=== PATIENT | female | born 1995 | race African-American/Black ===

== ENCOUNTER 2021-09-14 11:15 | Outpatient (RCR) | payer OTHER, SELFPAY ==
[2021-09-11 12:46] VITALS: BMI 45.7
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
--- NOTE | 2021-09-14 10:37 | PC.ADMIT ---
Admission note for 09/11/2021: Patient is 26 year old female, referred to PHP by [facility] were she was admitted in patient from 08/29/21 to 09/04/21 for severe depression, anxiety and SI. Dx: Bipolar, Depression and Anxiety. Patient has history of multiple in patient admissions. Patient reports symptoms have improved since discharge from [facility] howerever reports low energy, poor concentration and focus. She states she feels depression and anxiety creeping back All medications reconciled and medication teaching completed with patient who states good understanding. Patient seen by [facility] TA[facility]INGS [facility] today. Nursinf Admission completed via Telehealth. Patient in agreement with visit by Telehealth.
--- NOTE | 2021-09-15 15:14 | PC.NURSE ---
The client called out because she is not feeling well today
== END 2021-09-14 23:59 | disposition home or self-care (01) ==
LOC: HO.PHPA 11:15
PROVIDERS: Visit Provider Psychiatry & Neurology Psychiatry
DX: F31.4 Bipolar disorder, current episode depressed, severe, without psychotic features (principal); F41.1 Generalized anxiety disorder; F12.20 Cannabis dependence, uncomplicated; Z79.899 Other long term (current) drug therapy
CPT/HCPCS: 90791; 90853

== ENCOUNTER 2021-10-16 10:45 | Outpatient (RCR) | payer OTHER, SELFPAY ==
[2021-10-05 11:00] VITALS: BMI 48.2
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
[2021-10-05 14:37] LABS: Amphetamine Screen Urine Not Detected (Not Detect); Barbiturates, Urine Not Detected (Not Detect); Benzodiazepines Screen Urine Not Detected (Not Detect); Cannabinoid Screen Urine POSITIVE (Not Detect); Cocaine Screen Urine Not Detected (Not Detect); Fentanyl, urine Not Detected (Not Detect); Opiate Screen Urine Not Detected (Not Detect); Phencyclidine Screen Urine Not Detected (Not Detect)
--- NOTE | 2021-10-05 14:48 | PC.ADMIT ---
Patient is a 26 year old female who self referred to PHP d/t increased depression, and anxiety. Patient reports occasional SI however she stated, it is not as strong as it was before I went to the hospital . Denied plan or intent to kill or harm herself. Patient reports inpatient hospitalization in August at [facility] for about a week. Patient reports severe depression with SI and plan to cut her throat prior to hospitalization. Patient reports she found out her boyfriend of 4 years was cheating on her. Patient currently living with her now ex-boyfriend in separate rooms. They are civil towards each other. Patient reports financial issues which is stressful. Patient reports she was in Respite three times in March 2021. Patient also reports she has been smoking marijuana daily about 2 joints daily to manage her feelings. Stated she used to smoke 10 joints daily as she, had to be high all the time to manage her emotions. Patient wants to stop using and is aware that this is an issue for her. 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 Patient presented with depressed mood and anxious affect. She is calm and cooperative. Medications reconciled with patient and patient's pharmacy. Reports taking medications as prescribed. [ End ]
[2021-10-05 15:40] VITALS: BP 100/70; PULSE 80; TEMP 36.2
--- NOTE | 2021-10-06 15:55 | PC.NURSE ---
Met with p to review treatment plan, discuss schedule, and aftercare plans.
--- NOTE | 2021-10-08 15:02 | PC.NURSE ---
Case opened in treatment team.
== END 2021-10-16 23:59 | disposition home or self-care (01) ==
LOC: HO.PHPA 10:45
PROVIDERS: Nurse Practitioner Psychiatric/Mental Health; Visit Provider Psychiatry & Neurology Psychiatry
DX: F31.4 Bipolar disorder, current episode depressed, severe, without psychotic features (principal); F43.10 Post-traumatic stress disorder, unspecified; F41.1 Generalized anxiety disorder; F12.20 Cannabis dependence, uncomplicated
CPT/HCPCS: 80307; 90791; 90853

== ENCOUNTER 2022-01-03 13:17 | Emergency (ER) | payer MEDICAID, SELFPAY ==
--- NOTE | ~2022-01-03 | CT_ITS ---
EXAMINATION: CT HEAD WITHOUT CONTRAST CLINICAL INFORMATION: Syncope. Head trauma. COMPARISON: None TECHNIQUE: Contiguous axial imaging was performed from the skull base to vertex without intravenous administration of contrast. This CT examination was performed using dose optimization techniques as appropriate, variously including the following: *Automated exposure control *Adjustment of mA and/or kV according to patient size (this includes techniques or standardized protocols for targeted exams where dose is matched to indication/reason for exam; i.e. extremities or head) *Use of iterative reconstruction technique DLP: 896 mGy-cm FINDINGS: There is no evidence of acute intracranial hemorrhage, midline shift or mass effect. Abrams to white matter differentiation is well preserved. No evidence of abnormal extra-axial fluid collection. No evidence of acute territorial infarction. There is mild cerebral volume loss with proportionate prominence of the ventricles and cortical sulci; findings are atypical for patient's age. Recommend clinical correlation. No acute osseous abnormality. Calvarial soft tissues are unremarkable. The paranasal sinuses are well-aerated. Mastoid air cells and middle ear cavities are well-aerated. CT/CT head/brain wo IV con IMPRESSION: No acute intracranial abnormality. Mild cerebral volume loss which is atypical for patient's age. Recommend clinical correlation.
[2022-01-03 13:21] VITALS: BP 116/68; PULSE 90; O2SAT 98
[2022-01-03 13:22] VITALS: BP 137/73; PULSE 82; RESP 18; TEMP 36.6; O2SAT 100; BMI 47.5
--- NOTE | 2022-01-03 13:52 | ECG_ITS ---
Test Reason : SYNCOPE Blood Pressure : / mmHG Vent. Rate : 070 BPM Atrial Rate : 070 BPM P-R Int : 146 ms QRS Dur : 096 ms QT Int : 398 ms P-R-T Axes : 025 031 020 degrees QTc Int : 429 ms Normal sinus rhythm with sinus arrhythmia Early repolarization Normal ECG No previous ECGs available Referred By: Tiesha Raines Electronically Signed By:BRODY KIM MD
--- NOTE | 2022-01-03 13:53 | ED.SYNCOPE ---
HPI - Syncope General Chief Complaint: Syncope Stated Complaint: SYNCOPE, +HEAD STRIKE Time Seen by Provider: 01/03/22 13:26 Source: patient and EMS Mode of arrival: EMS Limitations: no limitations History of Present Illness HPI narrative: This is a 26-year-old female with history of anxiety, depression, PTSD, bipolar disorder, migraines who presents with syncopal episode. Per patient yesterday she felt lightheaded, had some nausea and vomiting. Generally fell on while yesterday. 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 Next thing she knew she woke up on the ground. Patient did have some nausea and vomiting after. She denies any incontinence. Patient reports similar episode 1 month ago requiring hospital visit and evaluation. Patient reports she has had syncopal episodes when she has migraines but feels this is different. She denies any chance of . Patient has an IUD. She denies any abdominal pain, diarrhea, neck pain or neck stiffness, chest pain, vision changes. Related Data Home Medications Medication Instructions Recorded Confirmed albuterol sulfate 90 mcg/actuation 2 inh inhalation Q4H PRN Shortness 09/11/21 10/05/21 aerosol inhaler Of Breath amlodipine 10 mg tablet 1 tab PO DAILY 09/11/21 10/05/21 buspirone 10 mg tablet 10 mg PO BID 09/11/21 10/05/21 clonazepam 1 mg tablet 1 tab PO TID PRN anxiety attack 09/11/21 10/05/21 hydroxyzine HCl 25 mg tablet 25 mg PO TID PRN Anxiety 09/11/21 10/05/21 lisinopril 20 mg tablet 40 tab PO DAILY 09/11/21 10/05/21 meclizine 12.5 mg tablet 1 tab PO TID PRN Headache 09/11/21 10/05/21 oxcarbazepine 600 mg tablet 1,200 mg PO BID 09/11/21 10/05/21 (Trileptal) risperidone 0.5 mg tablet 0.5 mg PO BID 09/11/21 10/05/21 Allergies Allergy/AdvReac Type Severity Reaction Status Date / Time acetaminophen [From Percocet] Allergy Itching Verified 09/11/21 12:29 almond Allergy Hives Verified 10/05/21 10:50 ondansetron [From Zofran] Allergy Itching Verified 09/11/21 12:29 oxycodone [From Percocet] Allergy Itching Verified 09/11/21 12:29 sertraline [From Zoloft] Allergy Involuntary Verified 09/11/21 12:31 Spasms hazelnut AdvReac Unknown Verified 10/05/21 10:51 Review of Systems Review of Systems: Yes all other systems are reviewed and are negative Constitutional: Constitutional: Reports no additional constitutional complaints, Denies body ache(s), Denies chills, Denies fever(s), Reports headache(s) and Denies weakness Eyes: Eyes: Reports no additional eye complaints and Denies change in vision ENT: Reports system reviewed and no additional complaints, except as documented, Reports dizziness, Reports headache(s), Denies nasal congestion, Denies nasal discharge and Denies neck pain Cardiovascular: Cardiovascular: Reports no additional cardiovascular complaints, Denies chest pain, Reports syncope, Denies leg edema and Denies dyspnea Respiratory: Respiratory: Reports no additional respiratory complaints, Denies cough and Denies dyspnea Gastrointestinal: Gastrointestinal: Reports no additional gastrointestinal complaints, Denies abdominal pain, Denies diarrhea, Reports nausea and Reports vomiting Genitourinary: Genitourinary: Reports no additional female genitourinary complaints and Denies urinary incontinence Musculoskeletal: Musculoskeletal: Reports no additional musculoskeletal complaints, Denies back pain, Denies arthralgias, Denies joint swelling, Denies neck pain, Denies numbness and Denies tingling Integumentary/Breasts: Skin/Breast: Reports system reviewed and no additional complaints, except as docu and Denies rash Neurologic: Reports system reviewed and no additional complaints, except as documented, Denies Abnormal speech present, Reports dizziness, Reports syncope, Reports headache(s), Denies numbness, Denies tingling and Denies weakness [facility] Past Medical History Attestation statement: The following information was validated with the patient. Source: old records reviewed and nursing notes reviewed Medical History Asthma Eczema Elevated prolactin level Hypertension IUD (intrauterine device) in place Migraine Sleep apnea Surgical History History of cholecystectomy Social History Social History Household Members: Friend(s) Patient Tobacco Use Status: Never used Tobacco Smoked in Last 30 Days: No Use of substances other than those prescribed or required for medical reasons: Yes Substance Use Type: Marijuana Advance Directives: No Advance Directives Information Provided: No Physical Exam Vital Signs: Vital Signs: Last Vital Signs Temp 98.1 F 01/03/22 16:33 Pulse 85 01/03/22 16:33 Resp 18 01/03/22 14:32 BP 118/67 01/03/22 16:33 Pulse Ox 100 01/03/22 16:33 O2 Del Method 01/03/22 16:33 BMI result Body Mass Index 47.5 Const: General: cooperative, healthy appearing, comfortable and no acute distress Orientation/consciousness: patient oriented x3 Limitations: no limitations HEENT: Head: Yes normal to inspection Ears: hearing grossly normal bilaterally General nose exam: Normal external nose present Face and sinus: Yes normal facial exam Mouth: Normal oral and palatal mucosa present Throat: Yes posterior oropharynx normal Eyes: General: appearance normal, both eyes and all related structures Pupils: Equal, round and reactive pupils present Neck: Neck: Yes normal visual inspection Chest: Chest palpation & inspection: normal inspection of the chest Resp: Effort & Inspection: normal respiratory effort Auscultation: clear to auscultation bilaterally Cardio: Rate: regular rate Rhythm: regular rhythm Peripheral pulses: Peripheral pulses 2+ throughout GI: Inspection: Yes normal to inspection Palpation (GI): Soft to palpation and nontender Auscultation: normal bowel sounds Back/Spine/Pelvis: Thoracic/Lumbar Spine: thoracic and lumbar spine normal to inspection Skin: General skin exam: no rashes or lesions noted Neuro: General: patient oriented x3, moves all extremities, no focal motor deficits, normal sensation to monofilament and Unable to assess gait Cranial nerves: Yes CN's II-XII intact bilaterally, Yes Equal, round and reactive pupils present, Yes Bilaterally intact EOM present, Yes Nystagmus not present, Yes Normal facial strength present and Yes Midline tongue present Cognition (Neuro): normal cognition Speech: No Abnormal speech present Gait exam (Neuro): Unable to assess gait Motor exam (neuro): 5/5 motor strength present throughout Sensory Exam: Normal double simultaneous stimulation for sensation Coordination: [id number] test normal, [id number] test normal and tandem gait normal Extrem: General: Yes normal to inspection Course Course Course Narrative: Labs are unremarkable. Orthostatics negative (standing heart rate 83, blood pressure 131/75, sitting heart rate 71, blood pressure 131/72, supine heart rate 71, blood pressure 130/67) EKG shows no ischemic changes with negative troponin. UA negative for infection. Urine is negative. CT head shows no acute finding. Patient has had the several days of vomiting, malaise, headache as prodrome with now syncopal episode. ?mild dehydration from viral illness. Recommended increasing fluids at home. Changing positions slowly. Reviewed worrisome signs and symptoms of when to return to the emergency room. Comfortable discharge home. MDM - Syncope MDM Narrative Medical decision making narrative: 26-year-old female here with reports of syncopal episode with preceding symptoms of headache, feeling lightheaded with nausea and vomiting. On arrival patient alert oriented. Normal neuro exam. Vitals are stable. Will need labs, EKG, orthostatics, UA with and CT head Medical Records Attestation: I reviewed the patient's medical records. Lab Data Attestation: I reviewed the patient's lab results. Result diagrams: 01/03/22 14:27 01/03/22 14:27 Labs: Lab Results 01/03/22 01/03/22 01/03/22 Range/Units 14:25 14:26 14:26 WBC (4.8-10.8) X10*3/uL RBC (4.20-5.50) X10*6/uL Hgb (12.0-16.0) g/dl Hct (37.0-47.0) % MCV (80.0-98.0) fL MCH (27.0-33.0) pg MCHC (31.0-35.0) g/dl RDW (11.0-16.0) % Plt Count (160-400) X10*3/uL MPV (9.4-12.3) fL Immature Gran % (Auto) (0.0-0.4) % Neut % (Auto) (45-73) % Lymph % (Auto) (20-40) % Isabella % (Auto) (2-11) % Eos % (Auto) (0-4) % Baso % (Auto) (0-2) % Lymph # (Auto) (1.2-4.9) X10*3/uL Isabella # (Auto) (0.1-1.2) X10*3/uL Eos # (Auto) (0.0-0.4) X10*3/uL Baso # (Auto) (0.0-0.2) X10*3/uL Abs Immat Gran (auto) (0.00-0.03) X10*3/uL Absolute Neuts (auto) (2.0-8.3) x10*3/uL Absolute Nucleated RBC (0.0-0.012) X10*3/uL Nucleated RBC % (auto) (0.0-0.2) /100WBC Sodium (135-145) mmol/L Potassium (3.3-5.1) mmol/L Chloride (96-108) mmol/L Carbon Dioxide (22-29) mmol/L Anion Gap (12-20) BUN (9-16) mg/dL Creatinine (0.5-1.4) mg/dL Estim Creat Clear Calc Estimated GFR Random Glucose (60-115) mg/dL Lactic Acid 0.9 (0.5-2.0) mmol/L Calcium (8.4-10.2) mg/dL Total Bilirubin (0.0-1.0) mg/dL Direct Bilirubin (0.0-0.5) mg/dL AST (5-31) U/L ALT (0-31) U/L Alkaline Phosphatase (39-117) U/L Troponin I High Sens (<3.5-17.0) ng/L Total Protein (6.5-8.0) g/dL Albumin (3.5-5.0) g/dL Urine Color Yellow Urine Appearance Clear Urine pH 5.5 (5.0-9.0) Ur Specific Blaine 1.025 (1.005-1.025) Urine Protein Negative (Neg-Trace) mg/dL Urine Glucose (UA) Negative (Negative) mg/dL Urine Ketones Negative (Negative) mg/dL Urine Blood Negative (Negative) Urine Nitrite Negative (Negative) Ur Leukocyte Esterase Negative (Negative) Urine Test NEGATIVE (NEGATIVE) COVID-19 (GENI) (Negative) COVID-19 Clin Com 1101/03/22 01/03/22 Range/Units 14:27 14:27 14:27 WBC 9.9 (4.8-10.8) X10*3/uL RBC 4.99 (4.20-5.50) X10*6/uL Hgb 14.6 (12.0-16.0) g/dl Hct 41.7 (37.0-47.0) % MCV 83.6 (80.0-98.0) fL MCH 29.3 (27.0-33.0) pg MCHC 35.0 (31.0-35.0) g/dl RDW 12.0 (11.0-16.0) % Plt Count 379 (160-400) X10*3/uL MPV 9.2 L (9.4-12.3) fL Immature Gran % (Auto) 0.3 (0.0-0.4) % Neut % (Auto) 49.7 (45-73) % Lymph % (Auto) 43.6 H (20-40) % Isabella % (Auto) 4.0 (2-11) % Eos % (Auto) 1.8 (0-4) % Baso % (Auto) 0.6 (0-2) % Lymph # (Auto) 4.3 (1.2-4.9) X10*3/uL Isabella # (Auto) 0.4 (0.1-1.2) X10*3/uL Eos # (Auto) 0.2 (0.0-0.4) X10*3/uL Baso # (Auto) 0.1 (0.0-0.2) X10*3/uL Abs Immat Gran (auto) 0.03 (0.00-0.03) X10*3/uL Absolute Neuts (auto) 4.9 (2.0-8.3) x10*3/uL Absolute Nucleated RBC 0.000 (0.0-0.012) X10*3/uL Nucleated RBC % (auto) 0.0 (0.0-0.2) /100WBC Sodium 138 (135-145) mmol/L Potassium 4.1 (3.3-5.1) mmol/L Chloride 105 (96-108) mmol/L Carbon Dioxide 23 (22-29) mmol/L Anion Gap 14 (12-20) BUN 10 (9-16) mg/dL Creatinine 0.70 (0.5-1.4) mg/dL Estim Creat Clear Calc 147.1 Estimated GFR > 60 Random Glucose 87 (60-115) mg/dL Lactic Acid (0.5-2.0) mmol/L Calcium 9.5 (8.4-10.2) mg/dL Total Bilirubin 0.6 (0.0-1.0) mg/dL Direct Bilirubin 0.2 (0.0-0.5) mg/dL AST 24 (5-31) U/L ALT 34 H (0-31) U/L Alkaline Phosphatase 69 (39-117) U/L Troponin I High Sens < 3.5 (<3.5-17.0) ng/L Total Protein 7.3 (6.5-8.0) g/dL Albumin 4.5 (3.5-5.0) g/dL Urine Color Urine Appearance Urine pH (5.0-9.0) Ur Specific Blaine (1.005-1.025) Urine Protein (Neg-Trace) mg/dL Urine Glucose (UA) (Negative) mg/dL Urine Ketones (Negative) mg/dL Urine Blood (Negative) Urine Nitrite (Negative) Ur Leukocyte Esterase (Negative) Urine Test (NEGATIVE) COVID-19 (GENI) (Negative) COVID-19 Clin Com 01/03/22 Range/Units 14:27 WBC (4.8-10.8) X10*3/uL RBC (4.20-5.50) X10*6/uL Hgb (12.0-16.0) g/dl Hct (37.0-47.0) % MCV (80.0-98.0) fL MCH (27.0-33.0) pg MCHC (31.0-35.0) g/dl RDW (11.0-16.0) % Plt Count (160-400) X10*3/uL MPV (9.4-12.3) fL Immature Gran % (Auto) (0.0-0.4) % Neut % (Auto) (45-73) % Lymph % (Auto) (20-40) % Isabella % (Auto) (2-11) % Eos % (Auto) (0-4) % Baso % (Auto) (0-2) % Lymph # (Auto) (1.2-4.9) X10*3/uL Isabella # (Auto) (0.1-1.2) X10*3/uL Eos # (Auto) (0.0-0.4) X10*3/uL Baso # (Auto) (0.0-0.2) X10*3/uL Abs Immat Gran (auto) (0.00-0.03) X10*3/uL Absolute Neuts (auto) (2.0-8.3) x10*3/uL Absolute Nucleated RBC (0.0-0.012) X10*3/uL Nucleated RBC % (auto) (0.0-0.2) /100WBC Sodium (135-145) mmol/L Potassium (3.3-5.1) mmol/L Chloride (96-108) mmol/L Carbon Dioxide (22-29) mmol/L Anion Gap (12-20) BUN (9-16) mg/dL Creatinine (0.5-1.4) mg/dL Estim Creat Clear Calc Estimated GFR Random Glucose (60-115) mg/dL Lactic Acid (0.5-2.0) mmol/L Calcium (8.4-10.2) mg/dL Total Bilirubin (0.0-1.0) mg/dL Direct Bilirubin (0.0-0.5) mg/dL AST (5-31) U/L ALT (0-31) U/L Alkaline Phosphatase (39-117) U/L Troponin I High Sens (<3.5-17.0) ng/L Total Protein (6.5-8.0) g/dL Albumin (3.5-5.0) g/dL Urine Color Urine Appearance Urine pH (5.0-9.0) Ur Specific Blaine (1.005-1.025) Urine Protein (Neg-Trace) mg/dL Urine Glucose (UA) (Negative) mg/dL Urine Ketones (Negative) mg/dL Urine Blood (Negative) Urine Nitrite (Negative) Ur Leukocyte Esterase (Negative) Urine Test (NEGATIVE) COVID-19 (GENI) Negative (Negative) COVID-19 Clin Com See Note Imaging Data CT scan - head: Attestation: I personally reviewed and interpreted this imaging study as follows: Radiologist's impression: [id number] [place] [address] CT Scan Report Signed Patient: Ariane Mckinnon MR#: [id number] : 1995 Acct:[id number] Age/Sex: 26 / F ADM Date: 01/03/22 Loc: HO.ED Attending Dr: Ordering Physician: Tiesha Raines NP Date of Service: 01/03/22 Procedure(s): CT head/brain wo IV con Accession Number(s): [id number] cc: Tiesha Raines NP~ EXAMINATION: CT HEAD WITHOUT CONTRAST CLINICAL INFORMATION: Syncope. Head trauma.? COMPARISON: None TECHNIQUE: Contiguous axial imaging was performed from the skull base to vertex without intravenous administration of contrast. This CT examination was performed using dose optimization techniques as appropriate, variously including the following: *Automated exposure control *Adjustment of mA and/or kV according to patient size (this includes techniques or standardized protocols for targeted exams where dose is matched to indication/reason for exam; i.e. extremities or head) *Use of iterative reconstruction technique DLP: 896 mGy-cm FINDINGS: There is no evidence of acute intracranial hemorrhage, midline shift or mass effect. Abrams to white matter differentiation is well preserved. No evidence of abnormal extra-axial fluid collection. No evidence of acute territorial infarction. There is mild cerebral volume loss with proportionate prominence of the ventricles and cortical sulci; findings are atypical for patient's age. Recommend clinical correlation. No acute osseous abnormality. Calvarial soft tissues are unremarkable. The paranasal sinuses are well-aerated. Mastoid air cells and middle ear cavities are well-aerated. ? CT/CT head/brain wo IV con IMPRESSION: No acute intracranial abnormality. Mild cerebral volume loss which is atypical for patient's age. Recommend clinical correlation. ? ECG Data Attestation: I personally reviewed and interpreted this ECG as follows: ECG interpretation date: 01/03/22 ECG interpretation time: 13:57 Interpretation: Normal sinus rhythm was sinus rhythm with rate of 70, normal [place], normal QRS, normal QT Discharge Plan Discharge Clinical Impression: Syncope Patient Disposition: Home, Self-Care Instructions: Syncope (ED) Additional Instructions: Change positions slowly Increase fluids at home COVID test is negative Your CT scan of your brain shows mild volume loss. Follow-up with primary care doctor in regards to this Prescriptions: No Action albuterol sulfate 90 mcg/actuation HFA aerosol inhaler 2 inh inhalation Q4H PRN (Reason: Shortness Of Breath) amlodipine 10 mg tablet 1 tab PO DAILY buspirone [BuSpar] 10 mg Tablet 10 mg PO BID clonazepam 1 mg tablet 1 tab PO TID PRN (Reason: anxiety attack) Rx Instructions: Use sparingly. Last filled for 90 tabs on 07/03/21 hydroxyzine HCl 25 mg Tablet 25 mg PO TID PRN (Reason: Anxiety) Rx Instructions: Waiting for p/u since August 26, 2021 lisinopril 20 mg tablet 40 tab PO DAILY meclizine 12.5 mg tablet 1 tab PO TID PRN (Reason: Headache) Rx Instructions: Last filled 06/08/21 risperidone 0.5 mg Tablet 0.5 mg PO BID oxcarbazepine [Trileptal] 600 mg Tablet 1,200 mg PO BID Label Comments: Patient was taking 1 and 1/2 tabs BID. She reports she is now taking 2 tabs BID. Referrals: Kwame Savage PA [Primary Care Provider] - 1 week Stand Alone Forms: Work/School Release Interventions: ED Discharge Assessment Last Done: 01/03/22 16:44
[2022-01-03 14:13] VITALS: BP 130/67; BP 131/72; BP 131/75; PULSE 71; PULSE 83
[2022-01-03 14:32] VITALS: BP 125/60; PULSE 75; RESP 18; O2SAT 100
[2022-01-03 14:33] LABS: MANUAL DIFF FLAG NO
[2022-01-03 14:34] LABS: Basophils Absolute Auto 0.1 X10*3/uL (0.0-0.2); Basophils Percent Auto 0.6 % (0-2); Eosinophils Absolute Auto 0.2 X10*3/uL (0.0-0.4); Eosinophils Percent Auto 1.8 % (0-4); Hematocrit 41.7 % (37.0-47.0); Hemoglobin 14.6 g/dl (12.0-16.0); Imm Gran Abs Auto 0.03 X10*3/uL (0.00-0.03); Imm Gran Pct Auto 0.3 % (0.0-0.4); Lymphocytes Absolute Auto 4.3 X10*3/uL (1.2-4.9); Lymphocytes Percent Auto 43.6 % (20-40); Mean Corpuscular Hemoglobin 29.3 pg (27.0-33.0); Mean Corpuscular Volume 83.6 fL (80.0-98.0); Mean Platelet Volume 9.2 fL (9.4-12.3); Monocytes Absolute Auto 0.4 X10*3/uL (0.1-1.2); Neutrophils Absolute Auto 4.9 x10*3/uL (2.0-8.3); Neutrophils Percent Auto 49.7 % (45-73); Platelet Count 379 X10*3/uL (160-400); Red Blood Count 4.99 X10*6/uL (4.20-5.50); White Blood Count 9.9 X10*3/uL (4.8-10.8)
[2022-01-03 14:36] LABS: Appearance Urine Clear; Color Urine Yellow; Glucose Urine UA Negative (Negative); Leukocyte Esterase Urine Negative (Negative); Nitrite Urine Negative (Negative); PH 5.5 (5.0-9.0); Specific Gravity - Urine 1.025 (1.005-1.025); Urine Blood Negative (Negative); Urine Ketones Negative (Negative); Urine Protein Negative (Neg-Trace)
[2022-01-03 14:38] LABS: UPreg QC Valid YES; Urine Pregnancy NEGATIVE (NEGATIVE)
[2022-01-03 14:45] LABS: Lactic Acid 0.9 mmol/L (0.5-2.0)
[2022-01-03 14:46] LABS: COVID-19 Test Negative (Negative)
[2022-01-03 14:50] LABS: Alanine Aminotransferase 34 U/L (0-31); Albumin Level 4.5 g/dL (3.5-5.0); Alkaline Phosphatase 69 U/L (39-117); Anion Gap 14 (12-20); Aspartate Amino Transferase 24 U/L (5-31); Bilirubin Direct 0.2 mg/dL (0.0-0.5); Bilirubin Total 0.6 mg/dL (0.0-1.0); Blood Urea Nitrogen 10 mg/dL (9-16); Calcium 9.5 mg/dL (8.4-10.2); Carbon Dioxide 23 mmol/L (22-29); Chloride 105 mmol/L (96-108); Creatinine Clr Calc Pharmacy 147.1; Estimated Glomerular Filt Rate > 60; Glucose Random 87 mg/dL (60-115); Potassium 4.1 mmol/L (3.3-5.1); Sodium 138 mmol/L (135-145); Total Protein 7.3 g/dL (6.5-8.0)
[2022-01-03 14:55] LABS: Troponin-I High Sensitivity < 3.5 ng/L (<3.5-17.0)
[2022-01-03 16:33] VITALS: BP 118/67; PULSE 85; TEMP 36.7; O2SAT 100
== END 2022-01-03 16:46 | disposition home or self-care (01) ==
PROVIDERS: Nurse Practitioner Family; Emergency Provider Emergency Medicine Emergency Medical Services; PCP Physician Assistant Medical
DX: R55 Syncope and collapse (principal); F41.9 Anxiety disorder, unspecified; F43.0 Acute stress reaction; Z20.822 Contact with and (suspected) exposure to COVID-19; Z79.899 Other long term (current) drug therapy
CPT/HCPCS: 70450; 80048; 80076; 81003; 81025; 83605; 84484; 85025; 87635; 93005; 99285

== ENCOUNTER 2022-01-11 12:40 | Observation (INO) | payer OTHER, SELFPAY ==
--- NOTE | ~2022-01-11 | CT_ITS ---
EXAMINATION: CT HEAD WITHOUT CONTRAST CLINICAL INFORMATION: Syncope. COMPARISON: Head CT scan dated 01/03/2022. TECHNIQUE: Contiguous axial imaging was performed from the skull base to vertex without intravenous administration of contrast. Coronal and sagittal reformatted images were obtained. This CT examination was performed using dose optimization techniques as appropriate, variously including the following: *Automated exposure control *Adjustment of mA and/or kV according to patient size (this includes techniques or standardized protocols for targeted exams where dose is matched to indication/reason for exam; i.e. extremities or head) *Use of iterative reconstruction technique DLP: 859 mGy-cm FINDINGS: The cortical sulci are normal. The lateral ventricles are symmetrical. The third and fourth ventricles are in their normal midline position. The basilar and prepontine cisterns are unremarkable. There is no acute intra or extracerebral abnormality. There is no mass effect or midline shift. Sections through the bony calvarium are unremarkable. The paranasal sinuses are clear. Mild mid nasal septal deviation apex of the right with small apical spur. The bony orbits and orbital contents are unremarkable. CT/CT head/brain wo IV con IMPRESSION: No acute intracranial pathology.
--- NOTE | ~2022-01-11 | XR_ITS ---
EXAMINATION: XR CHEST CLINICAL INFORMATION: Syncope COMPARISON: None TECHNIQUE: Frontal view of the chest was obtained. FINDINGS: Lungs are slightly hypoinflated. No airspace consolidation. No pleural effusion or pneumothorax. Cardiomediastinal silhouette and pulmonary vascularity are within normal limits. No acute osseous injury. XR/XR chest 1V IMPRESSION: No acute pulmonary disease.
--- NOTE | 2022-01-11 13:51 | ED_ITS ---
HPI - Fall General Chief Complaint: Syncope <HEATHER Cardoza Last Filed: 01/11/22 14:00> Stated Complaint: fall 01/11/22, passed out, feeling tired <HEATHER Cardoza Last Filed: 01/11/22 14:00> Time Seen by Provider: 01/11/22 14:25 <HEATHER Cardoza Last Filed: 01/11/22 14:00> Source: patient <HEATHER Gunderson Last Filed: 01/11/22 17:13> Mode of arrival: ambulatory <HEATHER Gunderson Last Filed: 01/11/22 17:13> History of Present Illness HPI Narrative: 26-year-old female with a past medical history of asthma, HTN, migraines, sleep apnea, presenting to the ED complaining of syncopal episode morning with + head strike, roomate found on the floor denies witnessed seizure-like activity or incontinence. Patient admits to similar symptoms last week in which she was evaluated in our ED, patient also had witnessed syncopal episode while in triage today. Admits to family history of blood clots, denies personal history or prior coagulopathy workup parent admits to feeling lightheaded prior to syncope. Reports mild headache at present. Denies vision change/loss, CP/SOB, abdominal pain, nausea/vomiting, pedal edema calf pain. Denies taking anticoagulation <HEATHER Gunderson Last Filed: 01/11/22 17:13> MD complaint: fall <HEATHER Gunderson Last Filed: 01/11/22 17:13> Onset (ago): hour(s) <HEATHER Gunderson Last Filed: 01/11/22 17:13> Related Data Home Medications: Home Medications Medication Instructions Recorded Confirmed albuterol sulfate 90 mcg/actuation 2 inh inhalation Q4H PRN Shortness 09/11/21 10/05/21 aerosol inhaler Of Breath amlodipine 10 mg tablet 1 tab PO DAILY 09/11/21 10/05/21 buspirone 10 mg tablet 10 mg PO BID 09/11/21 10/05/21 clonazepam 1 mg tablet 1 tab PO TID PRN anxiety attack 09/11/21 10/05/21 hydroxyzine HCl 25 mg tablet 25 mg PO TID PRN Anxiety 09/11/21 10/05/21 lisinopril 20 mg tablet 40 tab PO DAILY 09/11/21 10/05/21 meclizine 12.5 mg tablet 1 tab PO TID PRN Headache 09/11/21 10/05/21 oxcarbazepine 600 mg tablet 1,200 mg PO BID 09/11/21 10/05/21 (Trileptal) risperidone 0.5 mg tablet 0.5 mg PO BID 09/11/21 10/05/21 <HEATHER Cardoza - Last Filed: 01/11/22 14:00> Allergies/Adverse Reactions: Allergies Allergy/AdvReac Type Severity Reaction Status Date / Time acetaminophen [From Percocet] Allergy Itching Verified 09/11/21 12:29 almond Allergy Hives Verified 10/05/21 10:50 ondansetron [From Zofran] Allergy Itching Verified 09/11/21 12:29 oxycodone [From Percocet] Allergy Itching Verified 09/11/21 12:29 sertraline [From Zoloft] Allergy Involuntary Verified 09/11/21 12:31 Spasms hazelnut AdvReac Unknown Verified 10/05/21 10:51 <HEATHER Cardoza Last Filed: 01/11/22 14:00> Review of Systems Review of Systems: Constitutional: No Fever, No Chills, No Fatigue, No Malaise ENT/Mouth: No Ear Pain, No Nasal Congestion, No Sinus Pain, No Hoarseness, No sore throat, No Rhinorrhea, No Swallowing Difficulty Eyes: No Eye Pain, No Swelling, No Redness, No Discharge, No Vision Changes Cardiovascular: No Chest Pain, No SOB, No Edema, No Palpitations Respiratory: No Cough, No Sputum, No Dyspnea Gastrointestinal: No Nausea, No Vomiting, No Diarrhea, No Constipation, No Abdominal pain Genitourinary: No irregular bleeding, No Dysuria, No Urinary Frequency, No Hematuria, No Urinary Incontinence/retention, No Flank Pain Musculoskeletal: No joint pain, No Myalgias, No Joint Swelling Skin: No Skin Lesions, No rash Neuro: No Weakness, No Numbness, No Paresthesias, + Loss of Consciousness, + lightheadedness, + Headache <HEATHER Gunderson - Last Filed: 01/11/22 17:13> Yes all other systems are reviewed and are negative <HEATHER Gunderson - Last Filed: 01/11/22 17:13> Constitutional: Constitutional: Reports as per HPI <HEATHER Gunderson - Last Filed: 01/11/22 17:13> Neurologic: Denies Abnormal speech present <HEATHER Gunderson - Last Filed: 01/11/22 17:13> [facility] Past Medical History Attestation statement: The following information was validated with the patient. <HEATHER Gunderson - Last Filed: 01/11/22 17:13> Medical History: Medical History Asthma Eczema Elevated prolactin level Hypertension IUD (intrauterine device) in place Migraine Sleep apnea <HEATHER Cardoza - Last Filed: 01/11/22 14:00> Surgical History: Surgical History History of cholecystectomy <HEATHER Cardoza - Last Filed: 01/11/22 14:00> Social History Social History: Social History Household Members: Friend(s) Patient Tobacco Use Status: Never used Tobacco Substance Use Type: Marijuana Advance Directives: No Advance Directives Information Provided: Yes <HEATHER Cardoza - Last Filed: 01/11/22 14:00> Physical Exam Vital Signs: Vital Signs: Last Vital Signs Temp 97 F 01/11/22 13:52 Pulse 76 01/11/22 13:52 Resp 18 01/11/22 13:52 BP 126/83 01/11/22 13:52 Pulse Ox 99 01/11/22 13:52 O2 Del Method 01/11/22 13:52 BMI result Body Mass Index 48.4 <HEATHER Cardoza - Last Filed: 01/11/22 14:00> Vital Signs: Last Vital Signs Temp 97 F 01/11/22 13:52 Pulse 76 01/11/22 13:52 Resp 18 01/11/22 13:52 BP 126/83 01/11/22 13:52 Pulse Ox 99 01/11/22 13:52 O2 Del Method 01/11/22 13:52 BMI result Body Mass Index 48.4 <HEATHER Gunderson - Last Filed: 01/11/22 17:13> Const: General: cooperative, healthy appearing, no acute distress, alert and awake <HEATHER Gunderson - Last Filed: 01/11/22 17:13> Orientation/consciousness: patient oriented x3 <HEATHER Gunderson - Last Filed: 01/11/22 17:13> Limitations: no limitations <HEATHER Gunderson - Last Filed: 01/11/22 17:13> HEENT: Head: Yes normal to inspection and Yes atraumatic <HEATHER Gunderson - Last Filed: 01/11/22 17:13> Ears: hearing grossly normal bilaterally <HEATHER Gunderson - Last Filed: 01/11/22 17:13> General nose exam: Normal external nose present <HEATHER Gunderson - Last Filed: 01/11/22 17:13> Face and sinus: Yes normal facial exam <HEATHER Gunderson - Last Filed: 01/11/22 17:13> Throat: Yes posterior oropharynx normal, Yes tonsils normal, Yes uvula midline and No peritonsillar mass <HEATHER Gunderson - Last Filed: 01/11/22 17:13> Eyes: General: appearance normal, both eyes and all related structures <HEATHER Gunderson - Last Filed: 01/11/22 17:13> Pupils: Equal, round and reactive pupils present <HEATHER Gunderson - Last Filed: 01/11/22 17:13> EOM: EOMs intact bilaterally <HEATHER Gunderson - Last Filed: 01/11/22 17:13> Neck: Neck: Yes normal visual inspection and Yes no meningeal signs <HEATHER Gunderson - Last Filed: 01/11/22 17:13> Resp: Effort & Inspection: normal respiratory effort and no respiratory distress <HEATHER Gunderson - Last Filed: 01/11/22 17:13> Auscultation: clear to auscultation bilaterally, no crackles, no rales, no rhonchi and no wheezes <Lois Pouliot, PA - Last Filed: 01/11/22 17:13> Cardio: Rate: regular rate <Lois Pouliot, PA - Last Filed: 01/11/22 17:13> Heart sounds: S1 normal heart sound present and S2 normal heart sound present <Lois Pouliot, PA - Last Filed: 01/11/22 17:13> GI: Inspection: Yes normal to inspection <Lois Pouliot, PA - Last Filed: 01/11/22 17:13> Palpation (GI): Soft to palpation, nontender, no guarding and not rigid <Lois Pouliot, PA - Last Filed: 01/11/22 17:13> : General: Yes no CVA tenderness <Lois Pouliot, PA - Last Filed: 01/11/22 17:13> Back/Spine/Pelvis: Back: no CVA tenderness <Lois Pouliot, PA - Last Filed: 01/11/22 17:13> Skin: Rashes: no rashes <Lois Pouliot, PA - Last Filed: 01/11/22 17:13> Wounds: no wounds <Lois Pouliot, PA - Last Filed: 01/11/22 17:13> Neuro: General: patient oriented x3, tone normal, moves all extremities, no meningeal signs, no focal motor deficits and CN's II-XI intact bilaterally <Lois Pouliot, PA - Last Filed: 01/11/22 17:13> Cranial nerves: Yes CN's II-XII intact bilaterally, Yes Equal, round and reactive pupils present and Yes Bilaterally intact EOM present <Lois Pouliot, PA - Last Filed: 01/11/22 17:13> Cognition (Neuro): normal cognition <Lois Pouliot, PA - Last Filed: 01/11/22 17:13> Speech: No Abnormal speech present <Lois Pouliot, PA - Last Filed: 01/11/22 17:13> Motor exam (neuro): 5/5 motor strength present throughout, Pronator motor function not present and no tremor noted <Lois Pouliot, PA - Last Filed: 01/11/22 17:13> Coordination: [id number] test normal <HEATHER Gunderson Last Filed: 01/11/22 17:13> Romberg Test: Negative <HEATHER Gunderson - Last Filed: 01/11/22 17:13> Extrem: General: Yes normal to inspection, Yes no pedal edema and Yes no calf tenderness <HEATHER Gunderson - Last Filed: 01/11/22 17:13> Course Course Course Narrative: -1529--no leukocytosis. H&H stable. Troponin negative > will obtain 3 hour repeat. Labs otherwise unremarkable. XR chest 1V IMPRESSION: No acute pulmonary disease. 1620--CT head/brain wo IV con IMPRESSION: No acute intracranial pathology. ? -1710--D-dimer negative. Tox screen positive for benzos and THC > plan to admit patient for further management <HEATHER Gunderson - Last Filed: 01/11/22 17:13> Reevaluation(s) Reevaluation #1: 26 year old female hx bipolar do, anxiety, leana, htn presents with CC I passed out , unwitnessed just prior to arrival. Thinks she hit her head on door, woke up to roommate waking her up on the floor. Reports headache. Denies preceding sx. No loss of bowel control, no tongue trauma. No seizure hx. Tells me this happened to her last week aswell. Denies drugs and alcohol. Denies chest pain, shortness of breath, vision changes, dizziness, nausea, vomiting. No thinners PE: benign GCS 15, NIHSS-0 Plan- labs, urine, ekg, chest xray, head CT <HEATHER Cardoza - Last Filed: 01/11/22 14:00> Time: 13:55 <HEATHER Cardoza - Last Filed: 01/11/22 14:00> Reevaluation #2: Patient sycnopized fell no head strike, helped up brought into the department. <HEATHER Cardoza Last Filed: 01/11/22 14:00> Time: 14:00 <HEATHER Cardoza Last Filed: 01/11/22 14:00> Medications Administered Discontinued Medications Generic Name Dose Route Start Last Admin Trade Name Freq PRN Reason Stop Dose Admin Sodium Chloride 1,000 mls @ 999 mls/hr 01/11/22 15:00 01/11/22 15:24 Ns IV 01/11/22 16:00 999 mls/hr .Q1H1M MIMA Administration <HEATHER Cardoza - Last Filed: 01/11/22 14:00> Medications Administered Discontinued Medications Generic Name Dose Route Start Last Admin Trade Name Freq PRN Reason Stop Dose Admin Sodium Chloride 1,000 mls @ 999 mls/hr 01/11/22 15:00 01/11/22 15:24 Ns IV 01/11/22 16:00 999 mls/hr .Q1H1M MIMA Administration <HEATHER Gunderson - Last Filed: 01/11/22 17:13> MDM - Fall MDM Narrative Medical decision making narrative: 26-year-old female with a past medical history of asthma, HTN, migraines, sleep apnea, presenting to the ED complaining of syncopal episode morning with + head strike, roomate found on the floor denies witnessed seizure-like activity or incontinence. On exam vital signs stable, NAD, nontoxic appearing, no evidence of trauma, no midline spinous tenderness or focal neuro deficits. Concern for vasovagal syncope vs PE vs ICH. Rule out metabolic abnormalities. Lower suspicion for infectious etiology Plan: EKG, labs, UA, CXR, head CT, orthostatics, anticipated admission <HEATHER Gunderson - Last Filed: 01/11/22 17:13> Differential Diagnosis Differential diagnosis: Likely syncope and concussion with loss of consciousness <HEATHER Gunderson - Last Filed: 01/11/22 17:13> Medical Records Attestation: I reviewed the patient's medical records. <HEATHER Gunderson - Last Filed: 01/11/22 17:13> Lab Data Attestation: I reviewed the patient's lab results. <HEATHER Gunderson - Last Filed: 01/11/22 17:13> Result diagrams: : 01/11/22 14:23 01/11/22 14:23 <HEATHER Cardoza - Last Filed: 01/11/22 14:00> Labs: Lab Results 01/11/22 01/11/22 01/11/22 Range/Units 14:12 14:23 14:23 WBC 10.7 (4.8-10.8) X10*3/uL RBC 4.95 (4.20-5.50) X10*6/uL Hgb 14.3 (12.0-16.0) g/dl Hct 40.8 (37.0-47.0) % MCV 82.4 (80.0-98.0) fL MCH 28.9 (27.0-33.0) pg MCHC 35.0 (31.0-35.0) g/dl RDW 12.1 (11.0-16.0) % Plt Count 379 (160-400) X10*3/uL MPV 9.4 (9.4-12.3) fL Immature Gran % (Auto) 0.2 (0.0-0.4) % Neut % (Auto) 55.0 (45-73) % Lymph % (Auto) 37.3 (20-40) % [place] % (Auto) 5.8 (2-11) % Eos % (Auto) 1.0 (0-4) % Baso % (Auto) 0.7 (0-2) % Lymph # (Auto) 4.0 (1.2-4.9) X10*3/uL [place] # (Auto) 0.6 (0.1-1.2) X10*3/uL Eos # (Auto) 0.1 (0.0-0.4) X10*3/uL Baso # (Auto) 0.1 (0.0-0.2) X10*3/uL Abs Immat Gran (auto) 0.02 (0.00-0.03) X10*3/uL Absolute Neuts (auto) 5.9 (2.0-8.3) x10*3/uL Absolute Nucleated RBC 0.000 (0.0-0.012) X10*3/uL Nucleated RBC % (auto) 0.0 (0.0-0.2) /100WBC PT (10.0-13.1) SEC INR (0.9-1.1) D-Dimer High Sensitivty NG/ML Sodium 138 (135-145) mmol/L Potassium 4.0 (3.3-5.1) mmol/L Chloride 103 (96-108) mmol/L Carbon Dioxide 25 (22-29) mmol/L Anion Gap 14 (12-20) BUN 9 (9-16) mg/dL Creatinine 0.70 (0.5-1.4) mg/dL Estim Creat Clear Calc 148.8 Estimated GFR > 60 POC Glucose 81 (60-115) mg/dL Random Glucose 87 (60-115) mg/dL Calcium 9.9 (8.4-10.2) mg/dL Magnesium 2.1 (1.6-2.6) mg/dL Total Bilirubin 1.1 H (0.0-1.0) mg/dL AST 24 (5-31) U/L ALT 31 (0-31) U/L Alkaline Phosphatase 69 (39-117) U/L Troponin I High Sens (<3.5-17.0) ng/L Total Protein 7.1 (6.5-8.0) g/dL Albumin 4.5 (3.5-5.0) g/dL Beta HCG, Quant < 2 mIU/mL Urine Color Urine Appearance Urine pH (5.0-9.0) Ur Specific [place] (1.005-1.025) Urine Protein (Neg-Trace) mg/dL Urine Glucose (UA) (Negative) mg/dL Urine Ketones (Negative) mg/dL Urine Blood (Negative) Urine Nitrite (Negative) Ur Leukocyte Esterase (Negative) Urine RBC (0-2) /HPF Urine WBC (0-5) /HPF Ur Squamous Epith Cells (0-2) /HPF Urine Bacteria (None Seen) Hyaline Casts (0-2) /LPF Urine Opiates Screen (Not Detect) Urine Fentanyl Screen (Not Detect) Ur Barbiturates Screen (Not Detect) Ur Phencyclidine Scrn (Not Detect) Ur Amphetamines Screen (Not Detect) U Benzodiazepines Scrn (Not Detect) Urine Cocaine Screen (Not Detect) U Marijuana (THC) Screen (Not Detect) Influenza Type A (PCR) (Negative) Influenza Type B (PCR) (Negative) RSV RNA Qual (PCR) (Negative) SARS-CoV-2 RNA (RT-PCR) (Negative) 01/11/22 01/11/22 01/11/22 Range/Units 14:23 15:36 16:24 WBC (4.8-10.8) X10*3/uL RBC (4.20-5.50) X10*6/uL Hgb (12.0-16.0) g/dl Hct (37.0-47.0) % MCV (80.0-98.0) fL MCH (27.0-33.0) pg MCHC (31.0-35.0) g/dl RDW (11.0-16.0) % Plt Count (160-400) X10*3/uL MPV (9.4-12.3) fL Immature Gran % (Auto) (0.0-0.4) % Neut % (Auto) (45-73) % Lymph % (Auto) (20-40) % [place] % (Auto) (2-11) % Eos % (Auto) (0-4) % Baso % (Auto) (0-2) % Lymph # (Auto) (1.2-4.9) X10*3/uL [place] # (Auto) (0.1-1.2) X10*3/uL Eos # (Auto) (0.0-0.4) X10*3/uL Baso # (Auto) (0.0-0.2) X10*3/uL Abs Immat Gran (auto) (0.00-0.03) X10*3/uL Absolute Neuts (auto) (2.0-8.3) x10*3/uL Absolute Nucleated RBC (0.0-0.012) X10*3/uL Nucleated RBC % (auto) (0.0-0.2) /100WBC PT 13.0 (10.0-13.1) SEC INR 1.1 (0.9-1.1) D-Dimer High Sensitivty < 150 NG/ML Sodium (135-145) mmol/L Potassium (3.3-5.1) mmol/L Chloride (96-108) mmol/L Carbon Dioxide (22-29) mmol/L Anion Gap (12-20) BUN (9-16) mg/dL Creatinine (0.5-1.4) mg/dL Estim Creat Clear Calc Estimated GFR POC Glucose (60-115) mg/dL Random Glucose (60-115) mg/dL Calcium (8.4-10.2) mg/dL Magnesium (1.6-2.6) mg/dL Total Bilirubin (0.0-1.0) mg/dL AST (5-31) U/L ALT (0-31) U/L Alkaline Phosphatase (39-117) U/L Troponin I High Sens < 3.5 (<3.5-17.0) ng/L Total Protein (6.5-8.0) g/dL Albumin (3.5-5.0) g/dL Beta HCG, Quant mIU/mL Urine Color Urine Appearance Urine pH (5.0-9.0) Ur Specific [place] (1.005-1.025) Urine Protein (Neg-Trace) mg/dL Urine Glucose (UA) (Negative) mg/dL Urine Ketones (Negative) mg/dL Urine Blood (Negative) Urine Nitrite (Negative) Ur Leukocyte Esterase (Negative) Urine RBC (0-2) /HPF Urine WBC (0-5) /HPF Ur Squamous Epith Cells (0-2) /HPF Urine Bacteria (None Seen) Hyaline Casts (0-2) /LPF Urine Opiates Screen (Not Detect) Urine Fentanyl Screen (Not Detect) Ur Barbiturates Screen (Not Detect) Ur Phencyclidine Scrn (Not Detect) Ur Amphetamines Screen (Not Detect) U Benzodiazepines Scrn (Not Detect) Urine Cocaine Screen (Not Detect) U Marijuana (THC) Screen (Not Detect) Influenza Type A (PCR) NEGATIVE (Negative) Influenza Type B (PCR) NEGATIVE (Negative) RSV RNA Qual (PCR) NEGATIVE (Negative) SARS-CoV-2 RNA (RT-PCR) NEGATIVE (Negative) 01/11/22 01/11/22 Range/Units 16:24 16:25 WBC (4.8-10.8) X10*3/uL RBC (4.20-5.50) X10*6/uL Hgb (12.0-16.0) g/dl Hct (37.0-47.0) % MCV (80.0-98.0) fL MCH (27.0-33.0) pg MCHC (31.0-35.0) g/dl RDW (11.0-16.0) % Plt Count (160-400) X10*3/uL MPV (9.4-12.3) fL Immature Gran % (Auto) (0.0-0.4) % Neut % (Auto) (45-73) % Lymph % (Auto) (20-40) % [place] % (Auto) (2-11) % Eos % (Auto) (0-4) % Baso % (Auto) (0-2) % Lymph # (Auto) (1.2-4.9) X10*3/uL [place] # (Auto) (0.1-1.2) X10*3/uL Eos # (Auto) (0.0-0.4) X10*3/uL Baso # (Auto) (0.0-0.2) X10*3/uL Abs Immat Gran (auto) (0.00-0.03) X10*3/uL Absolute Neuts (auto) (2.0-8.3) x10*3/uL Absolute Nucleated RBC (0.0-0.012) X10*3/uL Nucleated RBC % (auto) (0.0-0.2) /100WBC PT (10.0-13.1) SEC INR (0.9-1.1) D-Dimer High Sensitivty NG/ML Sodium (135-145) mmol/L Potassium (3.3-5.1) mmol/L Chloride (96-108) mmol/L Carbon Dioxide (22-29) mmol/L Anion Gap (12-20) BUN (9-16) mg/dL Creatinine (0.5-1.4) mg/dL Estim Creat Clear Calc Estimated GFR POC Glucose (60-115) mg/dL Random Glucose (60-115) mg/dL Calcium (8.4-10.2) mg/dL Magnesium (1.6-2.6) mg/dL Total Bilirubin (0.0-1.0) mg/dL AST (5-31) U/L ALT (0-31) U/L Alkaline Phosphatase (39-117) U/L Troponin I High Sens (<3.5-17.0) ng/L Total Protein (6.5-8.0) g/dL Albumin (3.5-5.0) g/dL Beta HCG, Quant mIU/mL Urine Color Dark Yellow Urine Appearance Clear Urine pH 5.5 (5.0-9.0) Ur Specific [place] 1.020 (1.005-1.025) Urine Protein Negative (Neg-Trace) mg/dL Urine Glucose (UA) Negative (Negative) mg/dL Urine Ketones Negative (Negative) mg/dL Urine Blood Negative (Negative) Urine Nitrite Negative (Negative) Ur Leukocyte Esterase Trace H (Negative) Urine RBC 0-2 (0-2) /HPF Urine WBC 0-5 (0-5) /HPF Ur Squamous Epith Cells 6-10 (0-2) /HPF Urine Bacteria Trace (None Seen) Hyaline Casts 0-2 (0-2) /LPF Urine Opiates Screen Not Detected (Not Detect) Urine Fentanyl Screen Not Detected (Not Detect) Ur Barbiturates Screen Not Detected (Not Detect) Ur Phencyclidine Scrn Not Detected (Not Detect) Ur Amphetamines Screen Not Detected (Not Detect) U Benzodiazepines Scrn POSITIVE H (Not Detect) Urine Cocaine Screen Not Detected (Not Detect) U Marijuana (THC) Screen POSITIVE H (Not Detect) Influenza Type A (PCR) (Negative) Influenza Type B (PCR) (Negative) RSV RNA Qual (PCR) (Negative) SARS-CoV-2 RNA (RT-PCR) (Negative) <HEATHER Cardoza - Last Filed: 01/11/22 14:00> Lab Results 01/11/22 01/11/22 01/11/22 Range/Units 14:12 14:23 14:23 WBC 10.7 (4.8-10.8) X10*3/uL RBC 4.95 (4.20-5.50) X10*6/uL Hgb 14.3 (12.0-16.0) g/dl Hct 40.8 (37.0-47.0) % MCV 82.4 (80.0-98.0) fL MCH 28.9 (27.0-33.0) pg MCHC 35.0 (31.0-35.0) g/dl RDW 12.1 (11.0-16.0) % Plt Count 379 (160-400) X10*3/uL MPV 9.4 (9.4-12.3) fL Immature Gran % (Auto) 0.2 (0.0-0.4) % Neut % (Auto) 55.0 (45-73) % Lymph % (Auto) 37.3 (20-40) % [place] % (Auto) 5.8 (2-11) % Eos % (Auto) 1.0 (0-4) % Baso % (Auto) 0.7 (0-2) % Lymph # (Auto) 4.0 (1.2-4.9) X10*3/uL [place] # (Auto) 0.6 (0.1-1.2) X10*3/uL Eos # (Auto) 0.1 (0.0-0.4) X10*3/uL Baso # (Auto) 0.1 (0.0-0.2) X10*3/uL Abs Immat Gran (auto) 0.02 (0.00-0.03) X10*3/uL Absolute Neuts (auto) 5.9 (2.0-8.3) x10*3/uL Absolute Nucleated RBC 0.000 (0.0-0.012) X10*3/uL Nucleated RBC % (auto) 0.0 (0.0-0.2) /100WBC PT (10.0-13.1) SEC INR (0.9-1.1) D-Dimer High Sensitivty NG/ML Sodium 138 (135-145) mmol/L Potassium 4.0 (3.3-5.1) mmol/L Chloride 103 (96-108) mmol/L Carbon Dioxide 25 (22-29) mmol/L Anion Gap 14 (12-20) BUN 9 (9-16) mg/dL Creatinine 0.70 (0.5-1.4) mg/dL Estim Creat Clear Calc 148.8 Estimated GFR > 60 POC Glucose 81 (60-115) mg/dL Random Glucose 87 (60-115) mg/dL Calcium 9.9 (8.4-10.2) mg/dL Magnesium 2.1 (1.6-2.6) mg/dL Total Bilirubin 1.1 H (0.0-1.0) mg/dL AST 24 (5-31) U/L ALT 31 (0-31) U/L Alkaline Phosphatase 69 (39-117) U/L Troponin I High Sens (<3.5-17.0) ng/L Total Protein 7.1 (6.5-8.0) g/dL Albumin 4.5 (3.5-5.0) g/dL Beta HCG, Quant < 2 mIU/mL Urine Color Urine Appearance Urine pH (5.0-9.0) Ur Specific [place] (1.005-1.025) Urine Protein (Neg-Trace) mg/dL Urine Glucose (UA) (Negative) mg/dL Urine Ketones (Negative) mg/dL Urine Blood (Negative) Urine Nitrite (Negative) Ur Leukocyte Esterase (Negative) Urine RBC (0-2) /HPF Urine WBC (0-5) /HPF Ur Squamous Epith Cells (0-2) /HPF Urine Bacteria (None Seen) Hyaline Casts (0-2) /LPF Urine Opiates Screen (Not Detect) Urine Fentanyl Screen (Not Detect) Ur Barbiturates Screen (Not Detect) Ur Phencyclidine Scrn (Not Detect) Ur Amphetamines Screen (Not Detect) U Benzodiazepines Scrn (Not Detect) Urine Cocaine Screen (Not Detect) U Marijuana (THC) Screen (Not Detect) Influenza Type A (PCR) (Negative) Influenza Type B (PCR) (Negative) RSV RNA Qual (PCR) (Negative) SARS-CoV-2 RNA (RT-PCR) (Negative) 01/11/22 01/11/22 01/11/22 Range/Units 14:23 15:36 16:24 WBC (4.8-10.8) X10*3/uL RBC (4.20-5.50) X10*6/uL Hgb (12.0-16.0) g/dl Hct (37.0-47.0) % MCV (80.0-98.0) fL MCH (27.0-33.0) pg MCHC (31.0-35.0) g/dl RDW (11.0-16.0) % Plt Count (160-400) X10*3/uL MPV (9.4-12.3) fL Immature Gran % (Auto) (0.0-0.4) % Neut % (Auto) (45-73) % Lymph % (Auto) (20-40) % [place] % (Auto) (2-11) % Eos % (Auto) (0-4) % Baso % (Auto) (0-2) % Lymph # (Auto) (1.2-4.9) X10*3/uL [place] # (Auto) (0.1-1.2) X10*3/uL Eos # (Auto) (0.0-0.4) X10*3/uL Baso # (Auto) (0.0-0.2) X10*3/uL Abs Immat Gran (auto) (0.00-0.03) X10*3/uL Absolute Neuts (auto) (2.0-8.3) x10*3/uL Absolute Nucleated RBC (0.0-0.012) X10*3/uL Nucleated RBC % (auto) (0.0-0.2) /100WBC PT 13.0 (10.0-13.1) SEC INR 1.1 (0.9-1.1) D-Dimer High Sensitivty < 150 NG/ML Sodium (135-145) mmol/L Potassium (3.3-5.1) mmol/L Chloride (96-108) mmol/L Carbon Dioxide (22-29) mmol/L Anion Gap (12-20) BUN (9-16) mg/dL Creatinine (0.5-1.4) mg/dL Estim Creat Clear Calc Estimated GFR POC Glucose (60-115) mg/dL Random Glucose (60-115) mg/dL Calcium (8.4-10.2) mg/dL Magnesium (1.6-2.6) mg/dL Total Bilirubin (0.0-1.0) mg/dL AST (5-31) U/L ALT (0-31) U/L Alkaline Phosphatase (39-117) U/L Troponin I High Sens < 3.5 (<3.5-17.0) ng/L Total Protein (6.5-8.0) g/dL Albumin (3.5-5.0) g/dL Beta HCG, Quant mIU/mL Urine Color Urine Appearance Urine pH (5.0-9.0) Ur Specific [place] (1.005-1.025) Urine Protein (Neg-Trace) mg/dL Urine Glucose (UA) (Negative) mg/dL Urine Ketones (Negative) mg/dL Urine Blood (Negative) Urine Nitrite (Negative) Ur Leukocyte Esterase (Negative) Urine RBC (0-2) /HPF Urine WBC (0-5) /HPF Ur Squamous Epith Cells (0-2) /HPF Urine Bacteria (None Seen) Hyaline Casts (0-2) /LPF Urine Opiates Screen (Not Detect) Urine Fentanyl Screen (Not Detect) Ur Barbiturates Screen (Not Detect) Ur Phencyclidine Scrn (Not Detect) Ur Amphetamines Screen (Not Detect) U Benzodiazepines Scrn (Not Detect) Urine Cocaine Screen (Not Detect) U Marijuana (THC) Screen (Not Detect) Influenza Type A (PCR) NEGATIVE (Negative) Influenza Type B (PCR) NEGATIVE (Negative) RSV RNA Qual (PCR) NEGATIVE (Negative) SARS-CoV-2 RNA (RT-PCR) NEGATIVE (Negative) 01/11/22 01/11/22 Range/Units 16:24 16:25 WBC (4.8-10.8) X10*3/uL RBC (4.20-5.50) X10*6/uL Hgb (12.0-16.0) g/dl Hct (37.0-47.0) % MCV (80.0-98.0) fL MCH (27.0-33.0) pg MCHC (31.0-35.0) g/dl RDW (11.0-16.0) % Plt Count (160-400) X10*3/uL MPV (9.4-12.3) fL Immature Gran % (Auto) (0.0-0.4) % Neut % (Auto) (45-73) % Lymph % (Auto) (20-40) % [place] % (Auto) (2-11) % Eos % (Auto) (0-4) % Baso % (Auto) (0-2) % Lymph # (Auto) (1.2-4.9) X10*3/uL [place] # (Auto) (0.1-1.2) X10*3/uL Eos # (Auto) (0.0-0.4) X10*3/uL Baso # (Auto) (0.0-0.2) X10*3/uL Abs Immat Gran (auto) (0.00-0.03) X10*3/uL Absolute Neuts (auto) (2.0-8.3) x10*3/uL Absolute Nucleated RBC (0.0-0.012) X10*3/uL Nucleated RBC % (auto) (0.0-0.2) /100WBC PT (10.0-13.1) SEC INR (0.9-1.1) D-Dimer High Sensitivty NG/ML Sodium (135-145) mmol/L Potassium (3.3-5.1) mmol/L Chloride (96-108) mmol/L Carbon Dioxide (22-29) mmol/L Anion Gap (12-20) BUN (9-16) mg/dL Creatinine (0.5-1.4) mg/dL Estim Creat Clear Calc Estimated GFR POC Glucose (60-115) mg/dL Random Glucose (60-115) mg/dL Calcium (8.4-10.2) mg/dL Magnesium (1.6-2.6) mg/dL Total Bilirubin (0.0-1.0) mg/dL AST (5-31) U/L ALT (0-31) U/L Alkaline Phosphatase (39-117) U/L Troponin I High Sens (<3.5-17.0) ng/L Total Protein (6.5-8.0) g/dL Albumin (3.5-5.0) g/dL Beta HCG, Quant mIU/mL Urine Color Dark Yellow Urine Appearance Clear Urine pH 5.5 (5.0-9.0) Ur Specific [place] 1.020 (1.005-1.025) Urine Protein Negative (Neg-Trace) mg/dL Urine Glucose (UA) Negative (Negative) mg/dL Urine Ketones Negative (Negative) mg/dL Urine Blood Negative (Negative) Urine Nitrite Negative (Negative) Ur Leukocyte Esterase Trace H (Negative) Urine RBC 0-2 (0-2) /HPF Urine WBC 0-5 (0-5) /HPF Ur Squamous Epith Cells 6-10 (0-2) /HPF Urine Bacteria Trace (None Seen) Hyaline Casts 0-2 (0-2) /LPF Urine Opiates Screen Not Detected (Not Detect) Urine Fentanyl Screen Not Detected (Not Detect) Ur Barbiturates Screen Not Detected (Not Detect) Ur Phencyclidine Scrn Not Detected (Not Detect) Ur Amphetamines Screen Not Detected (Not Detect) U Benzodiazepines Scrn POSITIVE H (Not Detect) Urine Cocaine Screen Not Detected (Not Detect) U Marijuana (THC) Screen POSITIVE H (Not Detect) Influenza Type A (PCR) (Negative) Influenza Type B (PCR) (Negative) RSV RNA Qual (PCR) (Negative) SARS-CoV-2 RNA (RT-PCR) (Negative) <HEATHER Gunderson - Last Filed: 01/11/22 17:13> ECG Data Attestation: I personally reviewed and interpreted this ECG as follows: <HEATHER Gunderson - Last Filed: 01/11/22 17:13> ECG interpretation date: 01/11/22 <HEATHER Gunderson - Last Filed: 01/11/22 17:13> ECG interpretation time: 14:03 <HEATHER Gunderson - Last Filed: 01/11/22 17:13> Interpretation: EKG normal sinus rhythm at a rate of 85. QRS 86. QTC 442. No STEMI. <HEATHER Gunderson - Last Filed: 01/11/22 17:13> Discharge Plan Discharge Clinical Impression: Syncopal episodes <HEATHER Cardoza - Last Filed: 01/11/22 14:00> Patient Disposition: Admitted As Inpatient <HEATHER Cardoza - Last Filed: 01/11/22 14:00> Prescriptions: No Action albuterol sulfate 90 mcg/actuation HFA aerosol inhaler 2 inh inhalation Q4H PRN (Reason: Shortness Of Breath) amlodipine 10 mg tablet 1 tab PO DAILY buspirone [BuSpar] 10 mg Tablet 10 mg PO BID clonazepam 1 mg tablet 1 tab PO TID PRN (Reason: anxiety attack) Rx Instructions: Use sparingly. Last filled for 90 tabs on 07/03/21 hydroxyzine HCl 25 mg Tablet 25 mg PO TID PRN (Reason: Anxiety) Rx Instructions: Waiting for p/u since August 26, 2021 lisinopril 20 mg tablet 40 tab PO DAILY meclizine 12.5 mg tablet 1 tab PO TID PRN (Reason: Headache) Rx Instructions: Last filled 06/08/21 risperidone 0.5 mg Tablet 0.5 mg PO BID oxcarbazepine [Trileptal] 600 mg Tablet 1,200 mg PO BID Label Comments: Patient was taking 1 and 1/2 tabs BID. She reports she is now taking 2 tabs BID. <HEATHER Cardoza - Last Filed: 01/11/22 14:00>
[2022-01-11 13:52] VITALS: BP 126/83; PULSE 76; RESP 18; TEMP 36.1; O2SAT 99; BMI 48.4
--- NOTE | 2022-01-11 13:55 | ECG_ITS ---
Test Reason : SYNCOPE Blood Pressure : / mmHG Vent. Rate : 085 BPM Atrial Rate : 085 BPM P-R Int : 152 ms QRS Dur : 086 ms QT Int : 372 ms P-R-T Axes : 065 030 029 degrees QTc Int : 442 ms Normal sinus rhythm Possible Early repolarization Otherwise normal ECG When compared with ECG of 03-JAN-2022 13:57, No significant change was found Referred By: Jose Camarena Electronically Signed By:BRODY KIM MD
[2022-01-11 14:16] LABS: Glucose, Whole Blood 81 mg/dL (60-115)
[2022-01-11 14:28] LABS: MANUAL DIFF FLAG NO
[2022-01-11 14:37] LABS: Basophils Absolute Auto 0.1 X10*3/uL (0.0-0.2); Basophils Percent Auto 0.7 % (0-2); Eosinophils Absolute Auto 0.1 X10*3/uL (0.0-0.4); Hematocrit 40.8 % (37.0-47.0); Hemoglobin 14.3 g/dl (12.0-16.0); Imm Gran Abs Auto 0.02 X10*3/uL (0.00-0.03); Imm Gran Pct Auto 0.2 % (0.0-0.4); Lymphocytes Percent Auto 37.3 % (20-40); Mean Corpuscular Hemoglobin 28.9 pg (27.0-33.0); Mean Corpuscular Volume 82.4 fL (80.0-98.0); Mean Platelet Volume 9.4 fL (9.4-12.3); Monocytes Absolute Auto 0.6 X10*3/uL (0.1-1.2); Monocytes Percent Auto 5.8 % (2-11); Neutrophils Absolute Auto 5.9 x10*3/uL (2.0-8.3); Platelet Count 379 X10*3/uL (160-400); Red Blood Count 4.95 X10*6/uL (4.20-5.50); Red Cell Distribution Width 12.1 % (11.0-16.0); White Blood Count 10.7 X10*3/uL (4.8-10.8)
[2022-01-11 14:42] LABS: Alanine Aminotransferase 31 U/L (0-31); Albumin Level 4.5 g/dL (3.5-5.0); Alkaline Phosphatase 69 U/L (39-117); Anion Gap 14 (12-20); Aspartate Amino Transferase 24 U/L (5-31); Bilirubin Total 1.1 mg/dL (0.0-1.0); Blood Urea Nitrogen 9 mg/dL (9-16); Calcium 9.9 mg/dL (8.4-10.2); Carbon Dioxide 25 mmol/L (22-29); Chloride 103 mmol/L (96-108); Creatinine Clr Calc Pharmacy 148.8; Estimated Glomerular Filt Rate > 60; Glucose Random 87 mg/dL (60-115); Magnesium 2.1 mg/dL (1.6-2.6); Sodium 138 mmol/L (135-145); Total Protein 7.1 g/dL (6.5-8.0)
[2022-01-11 14:49] LABS: Troponin-I High Sensitivity < 3.5 ng/L (<3.5-17.0)
[2022-01-11] MEDS: 0.9 % Sodium Chloride 1,000 ML 999 ML IV (15:24)
[2022-01-11 15:39] LABS: HCG Quantitative < 2 mIU/mL
[2022-01-11 16:25] LABS: Influenza A PCR NEGATIVE (Negative); Influenza B PCR NEGATIVE (Negative); Resp Syncy Virus RNA Qual PCR NEGATIVE (Negative); SARS COV2 PCR INHOUSE NEGATIVE (Negative)
[2022-01-11 16:37] LABS: INTERNATIONAL NORM RATIO 1.1 (0.9-1.1)
[2022-01-11 16:46] LABS: Amphetamine Screen Urine Not Detected (Not Detect); Barbiturates, Urine Not Detected (Not Detect); Benzodiazepines Screen Urine POSITIVE (Not Detect); Cannabinoid Screen Urine POSITIVE (Not Detect); Cocaine Screen Urine Not Detected (Not Detect); Fentanyl, urine Not Detected (Not Detect); Opiate Screen Urine Not Detected (Not Detect); Phencyclidine Screen Urine Not Detected (Not Detect)
[2022-01-11 16:51] LABS: Appearance Urine Clear; Color Urine Dark Yellow; Glucose Urine UA Negative (Negative); Leukocyte Esterase Urine Trace (Negative); Nitrite Urine Negative (Negative); PH 5.5 (5.0-9.0); UMIC TRIGGER UACC YES; Urine Blood Negative (Negative); Urine Ketones Negative (Negative); Urine Protein Negative (Neg-Trace)
[2022-01-11 16:52] LABS: Bacteria Urine Trace (None Seen); Hyaline Casts Urine 0-2 /LPF (0-2); RBC Urine 0-2 /HPF (0-2); WBC Urine 0-5 /HPF (0-5)
[2022-01-11 16:54] LABS: D Dimer High Sensitivity < 150 NG/ML
--- NOTE | 2022-01-11 18:35 | PM.IMHP ---
History of Present Illness Date of Service: 01/11/22 Attending physician on admission: Braydon Tucker Chief Complaint: syncope 26-year-old female patient with past medical history significant for asthma, hypertension, sleep apnea, migraine, bipolar disorder anxiety and depression presented to [facility] due to syncope according to patient she woke up late for work this a.m., skipped breakfast, was going out the door when she collapse on the door way , patient's friend found her on the floor, noted swelling over right scalp concerning for head injury, while waiting in the triage patient noted to have another episode of syncope she denied preceding symptoms of lightheadedness, dizziness before passing out but felt dizzy prior to syncope at home, patient denies chest pain, denies history of seizure, no new medications, no history of nausea ,vomiting ,diarrhea no fevers, no chills, she admits to be under lot of stress, she is compliant with her home medications, taking 1 Klonopin a day, denies skipping Klonopin or taking extra dosages her blood pressures have been stable at home, patient presented to [facility] on January 03 with an episode of syncope and since her workup including a CT scan of head and orthostatic blood pressures were unremarkable she was discharged home, today a repeat CT head showed no acute abnormality, electrolytes, renal function, CBC are unremarkable, patient is being admitted to [facility] with recurrent episodes of syncope. Review of Systems Review of Systems: General no headache,+ dizziness, no fever chills. CVS no chest pain, no palpitation. Respiratory no cough no sob Gastrointestinal no nausea no vomiting, no abdominal pain Yes all other systems are reviewed and are negative [facility] Medical History Asthma Eczema Elevated prolactin level Hypertension IUD (intrauterine device) in place Migraine Sleep apnea Pertinent family history: history of depression and substance use in maternal and paternal family members Surgical History History of cholecystectomy Social History Household Members: Friend(s) Patient Tobacco Use Status: Never used Tobacco Smoked in Last 30 Days: No Use of substances other than those prescribed or required for medical reasons: Yes Substance Use Type: Marijuana Substance Use Frequency: Daily Advance Directives: No Advance Directives Information Provided: Yes Meds Allergies Allergy/AdvReac Type Severity Reaction Status Date / Time acetaminophen [From Percocet] Allergy Itching Verified 09/11/21 12:29 almond Allergy Hives Verified 10/05/21 10:50 ondansetron [From Zofran] Allergy Itching Verified 09/11/21 12:29 oxycodone [From Percocet] Allergy Itching Verified 09/11/21 12:29 sertraline [From Zoloft] Allergy Involuntary Verified 09/11/21 12:31 Spasms hazelnut AdvReac Unknown Verified 10/05/21 10:51 Active Medications: Current Medications Pharmacy Consult (Consult Rx Perform Med Rec) 1 each MISCELLANE ONCE PRN PRN Reason: Consult order Home Medications Medication Instructions Recorded Confirmed Last Taken Type buspirone 10 mg tablet 10 mg PO BID 09/11/21 01/11/22 10/05/21 08:00 History clonazepam 1 mg tablet 1 tab PO TID PRN anxiety attack 09/11/21 01/11/22 10/04/21 History hydroxyzine HCl 25 mg tablet 25 mg PO TID PRN Anxiety 09/11/21 01/11/22 Unknown History lisinopril 20 mg tablet 40 mg PO DAILY 09/11/21 01/11/22 10/05/21 08:00 History oxcarbazepine 600 mg tablet 1,200 mg PO BID 09/11/21 01/11/22 10/05/21 08:00 History (Trileptal) risperidone 0.5 mg tablet 0.5 mg PO BID 09/11/21 01/11/22 10/05/21 08:00 History trazodone 150 mg tablet 1 tab PO BEDTIME PRN Insomnia 01/11/22 01/11/22 Unknown History Physical Exam Vital Signs and Narrative: Vital Signs: Last Vital Signs Temp 97 F 01/11/22 13:52 Pulse 76 01/11/22 13:52 Resp 18 01/11/22 13:52 BP 126/83 01/11/22 13:52 Pulse Ox 99 01/11/22 13:52 O2 Del Method 01/11/22 13:52 BMI result Body Mass Index 48.4 Const: Other: General awake alert x3, resting comfortably in no acute distress. Neck is supple CVS regular rate rhythm, Respiratory lungs clear to auscultation, no respiratory distress, no wheeze, no rhonchi. Gastrointestinal abdomen soft, nontender, bowel sounds audible, no guarding , no rigidity. Extremities no edema. Neuro nonfocal psych appropriate affect skin no bruises Results Labs CBC and Chem 7: 01/11/22 14:23 01/11/22 14:23 Labs: Laboratory Results - last 24 hr 01/11/22 01/11/22 01/11/22 14:12 14:23 14:23 MCV 82.4 MCH 28.9 MCHC 35.0 RDW 12.1 Plt Count 379 MPV 9.4 Immature Gran % (Auto) 0.2 Neut % (Auto) 55.0 Lymph % (Auto) 37.3 [place] % (Auto) 5.8 Eos % (Auto) 1.0 Baso % (Auto) 0.7 Lymph # (Auto) 4.0 [place] # (Auto) 0.6 Eos # (Auto) 0.1 Baso # (Auto) 0.1 Abs Immat Gran (auto) 0.02 Absolute Neuts (auto) 5.9 Absolute Nucleated RBC 0.000 Nucleated RBC % (auto) 0.0 PT INR D-Dimer High Sensitivty Anion Gap 14 Estim Creat Clear Calc 148.8 Estimated GFR > 60 POC Glucose 81 Random Glucose 87 Calcium 9.9 Magnesium 2.1 Total Bilirubin 1.1 H AST 24 ALT 31 Alkaline Phosphatase 69 Troponin I High Sens Total Protein 7.1 Albumin 4.5 Beta HCG, Quant < 2 Urine Color Urine Appearance Urine pH Ur Specific [place] Urine Protein Urine Glucose (UA) Urine Ketones Urine Blood Urine Nitrite Ur Leukocyte Esterase Urine RBC Urine WBC Ur Squamous Epith Cells Urine Bacteria Hyaline Casts Urine Opiates Screen Urine Fentanyl Screen Ur Barbiturates Screen Ur Phencyclidine Scrn Ur Amphetamines Screen U Benzodiazepines Scrn Urine Cocaine Screen U Marijuana (THC) Screen Influenza Type A (PCR) Influenza Type B (PCR) RSV RNA Qual (PCR) SARS-CoV-2 RNA (RT-PCR) 01/11/22 01/11/22 01/11/22 14:23 15:36 16:24 MCV MCH MCHC RDW Plt Count MPV Immature Gran % (Auto) Neut % (Auto) Lymph % (Auto) [place] % (Auto) Eos % (Auto) Baso % (Auto) Lymph # (Auto) [place] # (Auto) Eos # (Auto) Baso # (Auto) Abs Immat Gran (auto) Absolute Neuts (auto) Absolute Nucleated RBC Nucleated RBC % (auto) PT 13.0 INR 1.1 D-Dimer High Sensitivty < 150 Anion Gap Estim Creat Clear Calc Estimated GFR POC Glucose Random Glucose Calcium Magnesium Total Bilirubin AST ALT Alkaline Phosphatase Troponin I High Sens < 3.5 Total Protein Albumin Beta HCG, Quant Urine Color Urine Appearance Urine pH Ur Specific [place] Urine Protein Urine Glucose (UA) Urine Ketones Urine Blood Urine Nitrite Ur Leukocyte Esterase Urine RBC Urine WBC Ur Squamous Epith Cells Urine Bacteria Hyaline Casts Urine Opiates Screen Urine Fentanyl Screen Ur Barbiturates Screen Ur Phencyclidine Scrn Ur Amphetamines Screen U Benzodiazepines Scrn Urine Cocaine Screen U Marijuana (THC) Screen Influenza Type A (PCR) NEGATIVE Influenza Type B (PCR) NEGATIVE RSV RNA Qual (PCR) NEGATIVE SARS-CoV-2 RNA (RT-PCR) NEGATIVE 01/11/22 01/11/22 16:24 16:25 MCV MCH MCHC RDW Plt Count MPV Immature Gran % (Auto) Neut % (Auto) Lymph % (Auto) [place] % (Auto) Eos % (Auto) Baso % (Auto) Lymph # (Auto) [place] # (Auto) Eos # (Auto) Baso # (Auto) Abs Immat Gran (auto) Absolute Neuts (auto) Absolute Nucleated RBC Nucleated RBC % (auto) PT INR D-Dimer High Sensitivty Anion Gap Estim Creat Clear Calc Estimated GFR POC Glucose Random Glucose Calcium Magnesium Total Bilirubin AST ALT Alkaline Phosphatase Troponin I High Sens Total Protein Albumin Beta HCG, Quant Urine Color Dark Yellow Urine Appearance Clear Urine pH 5.5 Ur Specific [place] 1.020 Urine Protein Negative Urine Glucose (UA) Negative Urine Ketones Negative Urine Blood Negative Urine Nitrite Negative Ur Leukocyte Esterase Trace H Urine RBC 0-2 Urine WBC 0-5 Ur Squamous Epith Cells 6-10 Urine Bacteria Trace Hyaline Casts 0-2 Urine Opiates Screen Not Detected Urine Fentanyl Screen Not Detected Ur Barbiturates Screen Not Detected Ur Phencyclidine Scrn Not Detected Ur Amphetamines Screen Not Detected U Benzodiazepines Scrn POSITIVE H Urine Cocaine Screen Not Detected U Marijuana (THC) Screen POSITIVE H Influenza Type A (PCR) Influenza Type B (PCR) RSV RNA Qual (PCR) SARS-CoV-2 RNA (RT-PCR) Imaging Radiologist's Impressions: Impressions Chest X-Ray 01/11/22 14:42 IMPRESSION: No acute pulmonary disease. Head CT 01/11/22 15:33 IMPRESSION: No acute intracranial pathology. Assessment and Plan (1) Syncopal episodes: Status: Acute Plan 26-year-old female patient past medical history significant for bipolar disorder, anxiety, depression, hypertension, asthma, migraine, sleep apnea presented to [facility] due to syncope, patient was seen at [facility] 1 week ago for syncope since workup was negative including CT head patient was discharged home, patient noted to have another episode of syncope while waiting in triage, patient is being admitted for for cardiac monitoring and further workup for syncope Syncope recurrent episodes of syncope CT head unremarkable, normal neuro examination, no arrhythmias, normal orthostatic studies no new medication, no evidence of infection, normal urinalysis and chest x-ray, normal COVID, influenza and RSV no seizure-like activity noted, no tongue biting, no bowel bladder incontinence, no postictal period taking Klonopin 1 tablet a day, admits compliance with all home medication , less likely Klonopin withdrawal seizure question related to underlying stress and worsening anxiety/ depression admit to telemetry rule out arrhythmia, continue close neuro checks, Neuro consult obtain EEG hypertension stable BP resume home medication lisinopril 40 mg daily mood disorder continue Trileptal, risperidone, trazodone, hydroxyzine, buspirone and clonazepam morbid obesity recommend weight reduction, low-calorie diet and exercise substance use disorder take marijuana daily Code status full code DVT prophylaxis with Lovenox Quality Stroke Does the patient have a stroke diagnosis?: No VTE Prior VTE?: No VTE Risk Level:: Medical - moderate - high VTE Device Contraindication: Treatment Not Indicated VTE Drug Contraindication: N/A - Med Ordered
--- NOTE | 2022-01-11 18:44 | PHA.MEDREC ---
Pharmacy Consult ? Medication Reconciliation Pharmacy has completed the medication reconciliation. Patient reported all medications. Christine Yanez, RicoD
[2022-01-11] MEDS: Enoxaparin Sodium 40 MG/0.4 ML SYRINGE SUBCUT (20:05)
[2022-01-11] MEDS: OXcarbazepine 300 MG TABLET 1200 MG PO (20:05)
[2022-01-11] MEDS: risperiDONE 0.5 MG TABLET PO (20:05)
[2022-01-11] MEDS: busPIRone HCl 10 MG TABLET PO (20:05)
[2022-01-11 20:23] VITALS: BP 121/79; PULSE 71
[2022-01-11] MEDS: 0.9 % Sodium Chloride Flush 3 ML SYRINGE IVFLUSH (23:32)
[2022-01-11 23:35] VITALS: BP 124/72; PULSE 72; RESP 18; TEMP 36.1; O2SAT 98
[2022-01-12] VITALS (7 sets, daily range): BP systolic 130–146; BP diastolic 76–98; PULSE 71–92; RESP 16–20; TEMP 36.2–37.1; O2SAT 95–98
--- NOTE | 2022-01-12 09:12 | PC.NURSE ---
pt sleeping but easily aeousable, skin appropriate for ethnicity, respirations even and unlabored, pt denies pain but states feeling tired, denies dizziness/sob
[2022-01-12] MEDS: risperiDONE 0.5 MG TABLET PO ×2 (09:14→22:52)
[2022-01-12] MEDS: OXcarbazepine 300 MG TABLET 1200 MG PO ×2 (09:14→22:52)
[2022-01-12] MEDS: busPIRone HCl 10 MG TABLET PO ×2 (09:14→22:52)
[2022-01-12] MEDS: lisinopriL 40 MG TABLET PO (09:14)
[2022-01-12] MEDS: 0.9 % Sodium Chloride Flush 3 ML SYRINGE IVFLUSH ×3 (09:15→22:53)
--- NOTE | 2022-01-12 13:43 | P.PNIM_ITS ---
Subjective Subjective Date of Service: 01/12/22 Interval History: slept well last night, offers no acute complaints of headache lightheadedness dizziness, no chest pain, no palpitation, no fevers no chills, stable vitals overnight, denies missing or overusing benzos, admit compliance with all medications, also under lot of stress. Review of Systems General no headache no dizziness no fever chills. CVS no chest pain, no palpitation. Respiratory no cough no sob. Gastrointestinal no nausea no vomiting, no abdominal pain Review of Systems: Yes all other systems are reviewed and are negative Physical Exam Vital Signs: Vital Signs: Last Vital Signs Temp 97.1 F 01/12/22 05:56 Pulse 92 01/12/22 09:08 Resp 20 01/12/22 09:08 BP 136/82 01/12/22 09:08 Pulse Ox 98 01/12/22 09:12 O2 Del Method 01/12/22 09:12 BMI result Body Mass Index 48.4 Const: Other: General? awake alert x3,? resting comfortably in no acute distress.? No facial swelling or bruising Neck is supple CVS? regular rate rhythm, Respiratory lungs clear to auscultation, no respiratory distress, no wheeze, no rhonchi. Gastrointestinal abdomen soft, nontender, bowel sounds audible,? no guarding , no rigidity. Extremities no? edema. Neuro nonfocal psych appropriate affect skin no bruises Objective Data Active Medications Acetaminophen (Acetaminophen 325 Mg Tablet) 650 mg PO Q6H PRN PRN Reason: Pain, Mild (Pain Scale 1-3) Buspirone HCl (Buspirone Hcl 10 Mg Tablet) 10 mg PO BID [facility] Last Admin: 01/12/22 09:14 Dose: 10 mg Documented By: ISMAEL Clonazepam (Clonazepam 1 Mg Tablet) 1 mg PO TID PRN PRN Reason: anxiety attack Enoxaparin Sodium (Enoxaparin Sodium 40 Mg/0.4 Ml Syringe) 40 mg SUBCUT Q24H [facility] Last Admin: 01/11/22 20:05 Dose: 40 mg Documented By: MISSY Hydroxyzine HCl (Hydroxyzine Hcl 25 Mg Tablet) 25 mg PO TID PRN PRN Reason: Anxiety Lisinopril (Lisinopril 40 Mg Tablet) 40 mg PO DAILY [facility]; Protocol Last Admin: 01/12/22 09:14 Dose: 40 mg Documented By: ISMAEL Ondansetron HCl (Ondansetron Hcl 4 Mg/2 Ml Vial) 4 mg IVPUSH Q8H PRN PRN Reason: Nausea and Vomiting Oxcarbazepine (Oxcarbazepine 300 Mg Tablet) 1,200 mg PO BID [facility] Last Admin: 01/12/22 09:14 Dose: 1,200 mg Documented By: ISMAEL Pharmacy Consult (Consult Rx Perform Med Rec) 1 each MISCELLANE ONCE PRN PRN Reason: Consult order Risperidone (Risperidone 0.5 Mg Tablet) 0.5 mg PO BID [facility] Last Admin: 01/12/22 09:14 Dose: 0.5 mg Documented By: ISMAEL Sodium Chloride (0.9 % Sodium Chloride Flush 3 Ml Syringe) 3 ml IVFLUSH QSHIFT [facility] Last Admin: 01/12/22 09:15 Dose: 3 ml Documented By: ISMAEL Trazodone HCl (Trazodone Hcl 100 Mg Tablet) 150 mg PO BEDTIME PRN PRN Reason: Insomnia Labs CBC & Chem 7: 01/11/22 14:23 01/11/22 14:23 Labs: Laboratory Results - last 24 hr 01/11/22 01/11/22 01/11/22 14:12 14:23 14:23 MCV 82.4 MCH 28.9 MCHC 35.0 RDW 12.1 Plt Count 379 MPV 9.4 Immature Gran % (Auto) 0.2 Neut % (Auto) 55.0 Lymph % (Auto) 37.3 [place] % (Auto) 5.8 Eos % (Auto) 1.0 Baso % (Auto) 0.7 Lymph # (Auto) 4.0 [place] # (Auto) 0.6 Eos # (Auto) 0.1 Baso # (Auto) 0.1 Abs Immat Gran (auto) 0.02 Absolute Neuts (auto) 5.9 Absolute Nucleated RBC 0.000 Nucleated RBC % (auto) 0.0 PT INR D-Dimer High Sensitivty Anion Gap 14 Estim Creat Clear Calc 148.8 Estimated GFR > 60 POC Glucose 81 Random Glucose 87 Calcium 9.9 Magnesium 2.1 Total Bilirubin 1.1 H AST 24 ALT 31 Alkaline Phosphatase 69 Troponin I High Sens Total Protein 7.1 Albumin 4.5 Beta HCG, Quant < 2 Urine Color Urine Appearance Urine pH Ur Specific [place] Urine Protein Urine Glucose (UA) Urine Ketones Urine Blood Urine Nitrite Ur Leukocyte Esterase Urine RBC Urine WBC Ur Squamous Epith Cells Urine Bacteria Hyaline Casts Urine Opiates Screen Urine Fentanyl Screen Ur Barbiturates Screen Ur Phencyclidine Scrn Ur Amphetamines Screen U Benzodiazepines Scrn Urine Cocaine Screen U Marijuana (THC) Screen Influenza Type A (PCR) Influenza Type B (PCR) RSV RNA Qual (PCR) SARS-CoV-2 RNA (RT-PCR) 01/11/22 01/11/22 01/11/22 14:23 15:36 16:24 MCV MCH MCHC RDW Plt Count MPV Immature Gran % (Auto) Neut % (Auto) Lymph % (Auto) [place] % (Auto) Eos % (Auto) Baso % (Auto) Lymph # (Auto) [place] # (Auto) Eos # (Auto) Baso # (Auto) Abs Immat Gran (auto) Absolute Neuts (auto) Absolute Nucleated RBC Nucleated RBC % (auto) PT 13.0 INR 1.1 D-Dimer High Sensitivty < 150 Anion Gap Estim Creat Clear Calc Estimated GFR POC Glucose Random Glucose Calcium Magnesium Total Bilirubin AST ALT Alkaline Phosphatase Troponin I High Sens < 3.5 Total Protein Albumin Beta HCG, Quant Urine Color Urine Appearance Urine pH Ur Specific [place] Urine Protein Urine Glucose (UA) Urine Ketones Urine Blood Urine Nitrite Ur Leukocyte Esterase Urine RBC Urine WBC Ur Squamous Epith Cells Urine Bacteria Hyaline Casts Urine Opiates Screen Urine Fentanyl Screen Ur Barbiturates Screen Ur Phencyclidine Scrn Ur Amphetamines Screen U Benzodiazepines Scrn Urine Cocaine Screen U Marijuana (THC) Screen Influenza Type A (PCR) NEGATIVE Influenza Type B (PCR) NEGATIVE RSV RNA Qual (PCR) NEGATIVE SARS-CoV-2 RNA (RT-PCR) NEGATIVE 01/11/22 01/11/22 16:24 16:25 MCV MCH MCHC RDW Plt Count MPV Immature Gran % (Auto) Neut % (Auto) Lymph % (Auto) [place] % (Auto) Eos % (Auto) Baso % (Auto) Lymph # (Auto) [place] # (Auto) Eos # (Auto) Baso # (Auto) Abs Immat Gran (auto) Absolute Neuts (auto) Absolute Nucleated RBC Nucleated RBC % (auto) PT INR D-Dimer High Sensitivty Anion Gap Estim Creat Clear Calc Estimated GFR POC Glucose Random Glucose Calcium Magnesium Total Bilirubin AST ALT Alkaline Phosphatase Troponin I High Sens Total Protein Albumin Beta HCG, Quant Urine Color Dark Yellow Urine Appearance Clear Urine pH 5.5 Ur Specific [place] 1.020 Urine Protein Negative Urine Glucose (UA) Negative Urine Ketones Negative Urine Blood Negative Urine Nitrite Negative Ur Leukocyte Esterase Trace H Urine RBC 0-2 Urine WBC 0-5 Ur Squamous Epith Cells 6-10 Urine Bacteria Trace Hyaline Casts 0-2 Urine Opiates Screen Not Detected Urine Fentanyl Screen Not Detected Ur Barbiturates Screen Not Detected Ur Phencyclidine Scrn Not Detected Ur Amphetamines Screen Not Detected U Benzodiazepines Scrn POSITIVE H Urine Cocaine Screen Not Detected U Marijuana (THC) Screen POSITIVE H Influenza Type A (PCR) Influenza Type B (PCR) RSV RNA Qual (PCR) SARS-CoV-2 RNA (RT-PCR) Assessment and Plan (1) Syncopal episodes: Status: Acute Plan 26-year-old female patient past medical history significant for bipolar disorder, anxiety, depression, hypertension, asthma, migraine, sleep apnea presented to [facility] due to syncope, patient was seen at [facility] 1 week ago for syncope since workup was negative including CT head patient was discharged home, patient noted to have another episode of syncope while waiting in triage, patient is being admitted for for cardiac monitoring and further workup for syncope ?Syncope stable since admission ?recurrent episodes of syncope CT head unremarkable, normal neuro examination, no? arrhythmias, normal orthostatic studies ?no new medication, no evidence of? infection, normal urinalysis and chest x- ray, normal COVID, influenza and RSV ?no seizure-like activity noted, no tongue biting, no bowel bladder incontinence, no postictal period ?taking Klonopin 1 tablet a day, admits compliance with all home medication , less likely Klonopin withdrawal seizure ?question related to underlying stress and? worsening anxiety/ depression await neuro input, obtain psych consult check EEG ? ?hypertension stable BP continue lisinopril 40 mg daily ?mood disorder continue Trileptal, risperidone, trazodone, hydroxyzine, buspirone and clonazepam ?morbid obesity recommend low-calorie diet and exercise ?substance use disorder take marijuana daily, counseling done ?Code status full code ?DVT prophylaxis with Lovenox Quality Stroke Does the patient have a stroke diagnosis?: No VTE Prior VTE?: No VTE Risk Level:: Medical - moderate - high VTE Device Contraindication: Treatment Not Indicated VTE Drug Contraindication: N/A - Med Ordered
--- NOTE | 2022-01-12 17:17 | P.CNNE_ITS ---
History of Present Illness Data of Consult Service Date: 01/12/22 Primary Care Provider: HEATHER Prasad HPI Reason for consult: Recurrent syncope, Anxiety This is a 26-year-old female with history of asthma, hypertension, sleep apnea, migraine, bipolar disorder, anxiety and depression who presented to [facility] due to a syncopal episode. She woke up late for work? this a.m., skipped breakfast, and as she was leaving, she collapsed on the door way. Her friend? found her on the floor, and noted swelling over right scalp. In the triage area she had another episode of syncope. She denied preceding symptoms of lightheadedness, dizziness before passing out but? felt dizzy prior to syncope at home, patient denies chest pain, denies history of seizure, no new medications, no history of nausea ,vomiting ,diarrhea no fevers, no chills. She is under a lot of stress. On 1 Klonopin a day, denies skipping Klonopin or taking extra dosages. She also presented to [facility] on January 03 with an epi sode of syncope and her workup including a CT scan of head and orthostatic blood pressures were unremarkable she was discharged home, today a repeat CT head showed no acute abnormality, electrolytes, renal function, CBC are unremarkable. Review of Systems Review of Systems: General no headache no dizziness no fever chills. CVS no chest pain, no palpitation. Respiratory no cough no sob. Gastrointestinal no nausea no vomiting, no abdominal pain Yes all other systems are reviewed and are negative Constitutional: Constitutional: Reports as per HPI Neurologic: Denies Abnormal speech present [facility] Past Medical History Medical History Asthma Eczema Elevated prolactin level Hypertension IUD (intrauterine device) in place Migraine Sleep apnea Family History Pertinent family history: history of depression and substance use in maternal and paternal family members Surgical History Surgical History History of cholecystectomy Social History Social History Household Members: Friend(s) Patient Tobacco Use Status: Never used Tobacco Substance Use Type: Marijuana Meds Allergies Allergy/AdvReac Type Severity Reaction Status Date / Time acetaminophen [From Percocet] Allergy Itching Verified 09/11/21 12:29 almond Allergy Hives Verified 10/05/21 10:50 ondansetron [From Zofran] Allergy Itching Verified 09/11/21 12:29 oxycodone [From Percocet] Allergy Itching Verified 09/11/21 12:29 sertraline [From Zoloft] Allergy Involuntary Verified 09/11/21 12:31 Spasms hazelnut AdvReac Unknown Verified 10/05/21 10:51 Active Medications: Current Medications Acetaminophen (Acetaminophen 325 Mg Tablet) 650 mg PO Q6H PRN PRN Reason: Pain, Mild (Pain Scale 1-3) Buspirone HCl (Buspirone Hcl 10 Mg Tablet) 10 mg PO BID [facility] Last Admin: 01/12/22 09:14 Dose: 10 mg Clonazepam (Clonazepam 1 Mg Tablet) 1 mg PO TID PRN PRN Reason: anxiety attack Enoxaparin Sodium (Enoxaparin Sodium 40 Mg/0.4 Ml Syringe) 40 mg SUBCUT Q24H [facility] Last Admin: 01/11/22 20:05 Dose: 40 mg Hydroxyzine HCl (Hydroxyzine Hcl 25 Mg Tablet) 25 mg PO TID PRN PRN Reason: Anxiety Lisinopril (Lisinopril 40 Mg Tablet) 40 mg PO DAILY [facility]; Protocol Last Admin: 01/12/22 09:14 Dose: 40 mg Ondansetron HCl (Ondansetron Hcl 4 Mg/2 Ml Vial) 4 mg IVPUSH Q8H PRN PRN Reason: Nausea and Vomiting Oxcarbazepine (Oxcarbazepine 300 Mg Tablet) 1,200 mg PO BID [facility] Last Admin: 01/12/22 09:14 Dose: 1,200 mg Pharmacy Consult (Consult Rx Perform Med Rec) 1 each MISCELLANE ONCE PRN PRN Reason: Consult order Risperidone (Risperidone 0.5 Mg Tablet) 0.5 mg PO BID [facility] Last Admin: 01/12/22 09:14 Dose: 0.5 mg Sodium Chloride (0.9 % Sodium Chloride Flush 3 Ml Syringe) 3 ml IVFLUSH QSHIFT [facility] Last Admin: 01/12/22 09:15 Dose: 3 ml Trazodone HCl (Trazodone Hcl 100 Mg Tablet) 150 mg PO BEDTIME PRN PRN Reason: Insomnia Home Medications Medication Instructions Recorded Confirmed Last Taken Type buspirone 10 mg tablet 10 mg PO BID 09/11/21 01/11/22 10/05/21 08:00 History clonazepam 1 mg tablet 1 tab PO TID PRN anxiety attack 09/11/21 01/11/22 10/04/21 History hydroxyzine HCl 25 mg tablet 25 mg PO TID PRN Anxiety 09/11/21 01/11/22 Unknown History lisinopril 20 mg tablet 40 mg PO DAILY 09/11/21 01/11/22 10/05/21 08:00 History oxcarbazepine 600 mg tablet 1,200 mg PO BID 09/11/21 01/11/22 10/05/21 08:00 History (Trileptal) risperidone 0.5 mg tablet 0.5 mg PO BID 09/11/21 01/11/22 10/05/21 08:00 History trazodone 150 mg tablet 1 tab PO BEDTIME PRN Insomnia 01/11/22 01/11/22 Unknown History Physical Exam Vital Signs: Vital Signs: Last Vital Signs Temp 98.6 F 01/12/22 16:36 Pulse 89 01/12/22 16:36 Resp 18 01/12/22 16:36 BP 146/87 H 01/12/22 16:36 Pulse Ox 98 01/12/22 16:36 O2 Del Method 01/12/22 16:36 BMI result Body Mass Index 48.4 Const: Other: General? awake alert x3,? resting comfortably in no acute distress.? No facial swelling or bruising Neck is supple CVS? regular rate rhythm, Respiratory lungs clear to auscultation, no respiratory distress, no wheeze, no rhonchi. Gastrointestinal abdomen soft, nontender, bowel sounds audible,? no guarding , no rigidity. Extremities no? edema. Neuro nonfocal psych appropriate affect skin no bruises General: cooperative, healthy appearing, no acute distress, alert and awake Orientation/consciousness: patient oriented x3 Limitations: no limitations HEENT: Head: Yes normal to inspection and Yes atraumatic Ears: hearing grossly normal bilaterally General nose exam: Normal external nose present Face and sinus: Yes normal facial exam Throat: Yes posterior oropharynx norm al, Yes tonsils normal, Yes uvula midline and No peritonsillar mass Eyes: General: appearance normal, both eyes and all related structures Pupils: Equal, round and reactive pupils present EOM: EOMs intact bilaterally Neck: Neck: Yes normal visual inspection and Yes no meningeal signs Resp: Effort & Inspection: normal respiratory effort and no respiratory distress Auscultation: clear to auscultation bilaterally, no crackles, no rales, no rhonchi and no wheezes Cardio: Rate: regular rate Heart sounds: S1 normal heart sound present and S2 normal heart sound present GI: Inspection: Yes normal to inspection Palpation (GI): Soft to palpation, nontender, no guarding and not rigid : General: Yes no CVA tenderness Back/Spine/Pelvis: Back: no CVA tenderness Skin: Rashes: no rashes Wounds: no wounds Neuro: Other: Normal non focal exam. General: patient oriented x3, tone normal, moves all extremities, no meningeal signs, no focal motor deficits and CN's II-XI intact bilaterally Cranial nerves: Yes CN's II-XII intact bilaterally, Yes Equal, round and reactive pupils present and Yes Bilaterally intact EOM present Cognition (Neuro): normal cognition Speech: No Abnormal speech present Gait exam (Neuro): Normal gait present Motor exam (neuro): 5/5 motor strength present throughout, Pronator motor function not present and no tremor noted Coordination: [id number] test normal Romberg Test: Negative Extrem: General: Yes normal to inspection, Yes no pedal edema and Yes no calf tenderness Results Labs CBC & Chem 7: 01/11/22 14:23 01/11/22 14:23 Assessment and Plan (1) Syncopal episodes: Status: Acute Recurrent syncopal episodes in the last 10 days r/o arrhythmia, r/o Sz, R/O psychogenic basis. CT scans normal. Recom. EEG, 14 day cardiac event monitor. Plan 26-year-old female patient past medical history significant for bipolar disorder, anxiety, depression, hypertension, asthma, migraine, sleep apnea presented to [facility] due to syncope, patient was seen at [facility] 1 week ago for syncope since workup was negative including CT head patient was discharged home, patient noted to have another episode of syncope while waiting in triage, patient is being admitted for for cardiac monitoring and further workup for syncope ?Syncope stable since admission ?recurrent episodes of syncope CT head unremarkable, normal neuro examination, no? arrhythmias, normal orthostatic studies ?no new medication, no evidence of? infection, normal urinalysis and chest x- ray, normal COVID, influenza and RSV ?no seizure-like activity noted, no tongue biting, no bowel bladder i ncontinence, no postictal period ?taking Klonopin 1 tablet a day, admits compliance with all home medication , less likely Klonopin withdrawal seizure ?question related to underlying stress and? worsening anxiety/ depression await neuro input, obtain psych consult check EEG ? ?hypertension stable BP continue lisinopril 40 mg daily ?mood disorder continue Trileptal, risperidone, trazodone, hydroxyzine, buspirone and clonazepam ?morbid obesity recommend low-calorie diet and exercise ?substance use disorder take marijuana daily, counseling done ?Code status full code ?DVT prophylaxis with Lovenox Procedures Date of Service Date of Service: 01/12/22
[2022-01-12] MEDS: Enoxaparin Sodium 40 MG/0.4 ML SYRINGE SUBCUT (18:14)
[2022-01-12] MEDS: traZODone HCL 100 MG TABLET 150 MG PO (22:54)
--- NOTE | 2022-01-13 | EEG_ITS ---
The waking background activity consists of a moderate voltage 8 to 9 hertz posterior alpha frequency, intermixed anteriorly with low-voltage fast frequencies. Photic stimulation is without activation. Hyperventilation was omitted. No focal, lateralizing, or paroxysmal discharges are seen. IMPRESSION: This waking EEG is within normal. MD MAZIN Verdin/NKECHI / [id number]
[2022-01-13 04:00] VITALS: BP 127/65; PULSE 62; RESP 20; TEMP 37; O2SAT 96
[2022-01-13 08:00] VITALS: BP 129/80; PULSE 70; TEMP 36
[2022-01-13] MEDS: OXcarbazepine 300 MG TABLET 1200 MG PO (08:05)
[2022-01-13] MEDS: lisinopriL 40 MG TABLET PO (08:05)
[2022-01-13] MEDS: risperiDONE 0.5 MG TABLET PO (08:06)
[2022-01-13] MEDS: 0.9 % Sodium Chloride Flush 3 ML SYRINGE IVFLUSH (08:06)
[2022-01-13] MEDS: busPIRone HCl 10 MG TABLET PO (08:06)
--- NOTE | 2022-01-13 10:16 | P.DS_ITS ---
DS: Providers Provider Date of Service: 01/13/22 Date of admission: 01/11/22 18:33 Primary care physician: HEATHER Prasad Consults: 01/11/22 18:54 Consult to Neurology Routine Consulting Provider: [facility] Reason for consultation: syncope Has provider been notified: No 01/12/22 13:42 Consult to Psychiatry Routine Consulting Provider: Vee Panchal Reason for consultation: syncope ? due to anxiety/depression DS: Diagnosis Discharge Diagnosis (1) Syncopal episodes: Status: Acute DS: Summary Hospital Course Hospital Course: Date of Service: 01/11/22 Chief Complaint:? syncope ?26-year-old female patient with past medical history significant for asthma, hypertension, sleep apnea, migraine, bipolar disorder anxiety and depression presented to [facility] due to syncope according to patient she woke up late for work? this a.m., skipped breakfast, was going out the door when she collapse on the door way , patient's friend? found her on the floor, noted swelling over right scalp? concerning for head injury, while waiting in the triage patient noted to have another episode of syncope she denied preceding symptoms of lightheadedness, dizziness before passing out but? felt dizzy prior to syncope at home, patient denies chest pain, denies history of seizure, no new medications, no history of nausea ,vomiting ,diarrhea no fevers, no chills, she admits to be under lot of stress, she is compliant with her home medications, taking 1 Klonopin a day, denies skipping Klonopin or taking extra dosages her blood? pressures have been stable at home, patient? presented to [facility] on January 03 with an episode of syncope and since her workup including a CT scan of head and orthostatic blood pressures were unremarkable she was discharged home, today a repeat CT head showed no acute abnormality, electrolytes, renal function, CBC are unremarkable, patient is being admitted to [facility] with recurrent episodes of syncope. 26-year-old female patient past medical history significant for bipolar disorder, anxiety, depression, hypertension, asthma, migraine, sleep apnea presented to [facility] due to syncope, patient was seen at [facility] 1 week ago for syncope since workup was negative including CT head patient was discharged home, patient noted to have another episode of syncope while waiting in triage, patient is being admitted for for cardiac monitoring and further workup for syncope ?Syncope admitted due to?recurrent episodes of syncope CT head unremarkable, normal neuro examination, no? arrhythmias, normal orthostatic studies,?no new medication, no evidence of? infection, normal urinalysis and chest x-ray, normal COVID, influenza and RSV,?no seizure-like activity noted, no tongue biting, no bowel bladder incontinence, no postictal period,?taking Klonopin 1 tablet a day, less likely Klonopin withdrawal seizure ?question related to underlying stress and? worsening anxiety/ depression, seen by Neurology they recommend EEG and cardiac event recorder EEG has been obtained since patient remains stable recommend to have outpatient follow-up with PCP to obtain EEG report, also recommended outpatient follow-up with Psychiatry ?hypertension stable BP? continue lisinopril 40 mg daily ?mood disorder continue Trileptal, risperidone, trazodone, hydroxyzine, buspirone and clonazepam ?morbid obesity recommend low-calorie diet and exercise ?substance use disorder take marijuana daily Time Spent with Patient Time attestation: Total time spent providing and/or coordinating discharge services: Discharge coordination time: Greater than 30 minutes Quality: Safe Use of Opioids Does Pt have an Active Cancer Diagnosis on the Problem List?: No Quality: Stroke Does the patient have a stroke diagnosis?: No Physical Exam Vital Signs: Vital Signs: Last Vital Signs Temp 96.8 F 01/13/22 08:00 Pulse 70 01/13/22 08:00 Resp 20 01/13/22 04:00 BP 129/80 01/13/22 08:00 Pulse Ox 96 01/13/22 04:00 O2 Del Method 01/13/22 04:00 BMI result Body Mass Index 48.4 Const: Other: General? awake alert x3,? resting comfortably in no acute distress.? No facial swelling or bruising Neck is supple CVS? regular rate rhythm, Respiratory lungs clear to auscultation, no respiratory distress, no wheeze, no rhonchi. Gastrointestinal abdomen soft, nontender, bowel sounds audible,? no guarding , no rigidity. Extremities no? edema. Neuro nonfocal psych appropriate affect skin no bruises Discharge Plan Discharge Patient Disposition: Home, Self-Care Discharge Diagnosis: Recurrent syncope Referrals: Kwame Savage PA [Primary Care Provider] - 1 Week Discharge Medications: Continued buspirone 10 mg Tablet 10 mg PO BID clonazepam 1 mg tablet 1 tab PO TID PRN (Reason: anxiety attack) Rx Instructions: Use sparingly. Last filled for 90 tabs on 07/03/21 hydroxyzine HCl 25 mg Tablet 25 mg PO TID PRN (Reason: Anxiety) Rx Instructions: Waiting for p/u since August 26, 2021 lisinopril 20 mg tablet 40 mg PO DAILY risperidone 0.5 mg Tablet 0.5 mg PO BID oxcarbazepine [Trileptal] 600 mg Tablet 1,200 mg PO BID Label Comments: Patient was taking 1 and 1/2 tabs BID. She reports she is now taking 2 tabs BID. trazodone 150 mg tablet 1 tab PO BEDTIME PRN (Reason: Insomnia) Discharge Orders: Discharge Order (Routine); Ordered 01/13/22 Ordered By: Braydon Tucker Diet: Advance to usual diet Activity on Discharge: As tolerated Stand Alone Forms: Patient Portal Discharge page, Work/School Release Care Plan Goals: syncope all workup negative no arrhythmia no seizure-like activity noted EEG obtained follow report Health Concerns: continue all home medications as before Plan of Treatment: outpatient follow-up with PCP cardiology office will call for cardiac event monitor follow-up with Psychiatry Assessment: as above
[2022-01-13 12:00] VITALS: BP 117/71; PULSE 74; RESP 20; TEMP 36.9; O2SAT 93
--- NOTE | 2022-01-13 13:23 | MHC.CM.PN ---
Patient has been medically cleared for dc to home today, self care.
--- NOTE | 2022-01-13 13:27 | MHC.CM.PN ---
Patient was admitted on 01/11/2022 and it does not appear that initial CM admission was completed. This CM addressed SANTOYO with Patient today on dc and provided her with the original and placed a copy on the chart. Patient's Roommate is providing transportation.
== END 2022-01-13 14:00 | disposition home or self-care (01) ==
LOC: HO.ED 17:13 → HO.EDOVER 01-12 10:11 → HO.IMC 01-12 15:15
PROVIDERS: Physician Assistant; Admitting Provider Hospitalist; Emergency Provider Emergency Medicine; PCP Physician Assistant Medical; Visit Provider Hospitalist
DX: R55 Syncope and collapse (principal); Z20.822 Contact with and (suspected) exposure to COVID-19; R51.9 Headache, unspecified; I10 Essential (primary) hypertension; J45.909 Unspecified asthma, uncomplicated; G47.33 Obstructive sleep apnea (adult) (pediatric); F31.9 Bipolar disorder, unspecified; F41.9 Anxiety disorder, unspecified; F12.10 Cannabis abuse, uncomplicated; E66.01 Morbid (severe) obesity due to excess calories; Z68.42 Body mass index [BMI] 45.0-49.9, adult; Z79.899 Other long term (current) drug therapy
CPT/HCPCS: 0241U; 36415; 70450; 71045; 80053; 80307; 81001; 82947; 83735; 84484; 84702; 85025; 85379; 85610; 93005; 94660; 95816; 96360; 96361; 96372; 99219; 99285; J1650

== ENCOUNTER → 2022-02-09 11:23 | Outpatient (REF) | payer OTHER, SELFPAY ==
--- NOTE | 2022-02-09 11:26 | HM_ITS ---
Cardiac event monitor Indication: Syncope Technique: Patient was worked up to cardiac event monitor for total of 30 days starting on 02/09/2022. Total compliance rate was 42% with baseline artifact noted. Findings: Baseline was normal sinus rhythm with highest heart rate of 159 beats per min sinus tachycardia and lowest heart rate of 33 beats per minute in sinus bradycardia during sleep hours. No significant pauses noted. No abnormalities of AV conduction noted. Overall sinus rhythm. No significant ectopy or arrhythmias noted. Patient reported 3 symptoms twice she reported chest tightness which correlated with normal sinus rhythm. Once she complained of dizziness which correlated artifact data. Conclusion: 1. Baseline normal sinus rhythm with no significant pauses 2. No significant arrhythmias 3. Two of the patient's reported symptoms of chest tightness correlated with sinus rhythm MTDD
== END ==
LOC: HO.CARD 11:23
PROVIDERS: PCP Physician Assistant Medical; Visit Provider Internal Medicine Cardiovascular Disease
DX: R55 Syncope and collapse (principal)
CPT/HCPCS: 93270